=== PATIENT | male | born 1960 | race Hispanic/Latino ===

== ENCOUNTER 2020-08-03 02:33 | Emergency (ER) | payer MEDICARE ==
[2020-08-03] MEDS ORDERED: CEFTRIAXONE SODIUM 1 GM ONE (03:04)
[2020-08-03] MEDS ORDERED: ACETAMINOPHEN EXTRA STRENGTH 500 MG TABLET ONE (03:04)
[2020-08-03 03:09] LABS: BASOPHILS % (AUTO) 0.2 % (0.0-5.0); EOSINOPHILS % (AUTO) 0.5 % (0.0-8.0); HEMATOCRIT 41.9 % (42-54); LYMPHOCYTES % (AUTO) 18.3 % (21.0-51.0); MEAN CORPUSCULAR HEMOGLOBIN 27.7 pg (27.0-33.0); MEAN CORPUSCULAR HGB CONC 34.8 g/dL (32.0-36.0); MEAN CORPUSCULAR VOLUME 79.5 fL (79-99); NEUTROPHILS % (AUTO) 69.3 % (40.0-77.0); PLATELET COUNT (AUTO) 257 K/uL (130-400); RED BLOOD CELL COUNT(AUTO) 5.27 MIL/uL (4.50-6.20); RED CELL DISTRIBUTION WIDTH 13.7 % (11.0-15.5); WHITE BLOOD COUNT (AUTO) 12.4 K/uL (4.8-10.8)
[2020-08-03 03:14] LABS: CREATININE 1.1 mg/dL (0.5-1.5); POTASSIUM 3.2 mmol/L (3.5-5.1)
[2020-08-03 03:19] LABS: BILIRUBIN,TOTAL 0.5 mg/dL (0.2-1.0); TOTAL PROTEIN, SERUM 7.3 g/dL (6.0-8.3)
[2020-08-03 04:50] LABS: APPEARANCE,URINE Clear (CLEAR); BILIRUBIN,URINE Negative (NEGATIVE); COLOR,URINE Yellow (YELLOW); GLUCOSE, URINE (UA) Negative (NEGATIVE); KETONES,URINE Negative (NEGATIVE); LEUKOCYTE ESTERASE ,URINE Moderate (NEGATIVE); NITRATE,URINE Negative (NEGATIVE); OCCULT BLOOD,URINE Large (NEGATIVE); PROTEIN,URINE Negative (NEGATIVE)
[2020-08-03 05:02] LABS: BACTERIA,URINE Rare /HPF (None Seen)
[2020-08-03 05:03] LABS: SQUAMOUS EPITHELIAL CELL,UR Rare /HPF (0-2)
== END 2020-08-03 05:33 | disposition home or self-care (01) ==
LOC: EDH 02:33
DX: N45.3 Epididymo-orchitis (principal); Z20.828 Contact with and (suspected) exposure to other viral communicable diseases
CPT/HCPCS: 36415; 71045; 76870; 80053; 81001; 83605; 85025; 86308; 87040 ×2; 87088; 87426; 87804 ×2; 96365; 99285; J0696; U0003

== ENCOUNTER 2020-10-16 00:43 | Emergency (ER) | payer MEDICARE ==
[2020-10-16 01:29] LABS: BASOPHILS % (AUTO) 0.2 % (0.0-5.0); EOSINOPHILS % (AUTO) 1.6 % (0.0-8.0); HEMATOCRIT 43.2 % (42-54); LYMPHOCYTES % (AUTO) 27.5 % (21.0-51.0); MEAN CORPUSCULAR HEMOGLOBIN 27.7 pg (27.0-33.0); MEAN CORPUSCULAR VOLUME 81.5 fL (79-99); MONOCYTES % (AUTO) 8.8 % (3.0-13.0); NEUTROPHILS % (AUTO) 61.6 % (40.0-77.0); PLATELET COUNT (AUTO) 241 K/uL (130-400); RED CELL DISTRIBUTION WIDTH 14.1 % (11.0-15.5)
[2020-10-16 01:41] LABS: APPEARANCE,URINE Cloudy (CLEAR); BILIRUBIN,URINE Negative (NEGATIVE); COLOR,URINE Yellow (YELLOW); GLUCOSE, URINE (UA) Negative (NEGATIVE); KETONES,URINE Negative (NEGATIVE); LEUKOCYTE ESTERASE ,URINE Large (NEGATIVE); NITRATE,URINE Negative (NEGATIVE); OCCULT BLOOD,URINE Moderate (NEGATIVE); PH,URINE 5.5 (5.0-8.0); PROTEIN,URINE POS 1+ mg/dL (NEGATIVE); UROBILINOGEN,URINE 0.2 mg/dL (0.2-1.0)
[2020-10-16 01:44] LABS: ALBUMIN 3.5 g/dL (3.5-5.0); BILIRUBIN,TOTAL 0.4 mg/dL (0.2-1.0); POTASSIUM 3.9 mmol/L (3.5-5.1); TOTAL PROTEIN, SERUM 7.5 g/dL (6.0-8.3)
[2020-10-16 02:14] LABS: BACTERIA,URINE Moderate /HPF (None Seen); RBC,URINE 26-50 /HPF (0-1); SQUAMOUS EPITHELIAL CELL,UR Few /HPF (0-2); WBC,URINE 51-100 /HPF (0-1)
== END 2020-10-16 04:18 | disposition home or self-care (01) ==
LOC: EDH 00:43
DX: R10.10 Upper abdominal pain, unspecified (principal); M79.18 Myalgia, other site
CPT/HCPCS: 36415; 74176; 80053; 81001; 82150; 83690; 85025; 87077; 87088; 87186; 96374

== ENCOUNTER → 2022-02-18 | Outpatient (CLI) | payer MEDICARE | END | disposition home or self-care (01) | LOC: RAH 10:55 | DX: R06.02 Shortness of breath (principal) | CPT/HCPCS: 71046 ==

== ENCOUNTER → 2022-07-07 | Outpatient (CLI) | payer MEDICARE | END | disposition home or self-care (01) | LOC: RAH 09:10 | PROVIDERS: ATTEND Internal Medicine | DX: R06.02 Shortness of breath (principal) | CPT/HCPCS: 93015; 93017 ==

== ENCOUNTER 2023-01-01 07:14 | Emergency (ER) | payer MEDICARE ==
[~2023-01-01] VITALS: Ht 170.2 cm; Wt 86.2 kg
[2023-01-01] MEDS ORDERED: FAMC500T8 PO (07:40)
[2023-01-01] MEDS ORDERED: CEFTRIAXONE 500MG VIAL IM ONE (08:00)
[2023-01-01 08:02] VITALS: BP 132/74
[2023-01-01 08:19] LABS: APPEARANCE,URINE CLOUDY (CLEAR); BILIRUBIN,URINE NEGATIVE (NEGATIVE); COLOR,URINE YELLOW (YELLOW); GLUCOSE, URINE (UA) NEGATIVE (NEGATIVE); KETONES,URINE NEGATIVE (NEGATIVE); LEUKOCYTE ESTERASE ,URINE 500 Leu/uL (NEGATIVE); NITRATE,URINE 2+ (NEGATIVE); OCCULT BLOOD,URINE NEGATIVE (NEGATIVE); PROTEIN,URINE NEGATIVE (NEGATIVE); UROBILINOGEN,URINE 0.2 mg/dL (0.2-1.0)
[2023-01-01 08:41] LABS: BACTERIA,URINE MANY /HPF (None Seen); MUCUS,URINE RARE LPF (None Seen); WBC,URINE 51-100 /HPF (0-1)
== END 2023-01-01 08:04 | disposition home or self-care (01) ==
LOC: EDH 07:14
DX: A60.02 Herpesviral infection of other male genital organs (principal)
CPT/HCPCS: 99283; 87077; 87088; 87186; 87797; 87486; 81001; 96372; J0696

== ENCOUNTER 2023-06-20 15:43 | Emergency (ER) | payer MEDICARE ==
[~2023-06-20] VITALS: Ht 170.2 cm; Wt 81.6 kg
[~2023-06-20 15:43] MED LIST: FAMC500T8 PO
[2023-06-20] MEDS ORDERED: 0.9%NACL 1000ML 1,000 ML IV ONE (16:30)
[2023-06-20 16:42] LABS: BASOPHILS # (AUTO) 0.04 K/uL (0.00-0.20); BASOPHILS % (AUTO) 0.6 % (0.0-5.0); EOSINOPHILS # (AUTO) 0.17 K/uL (0.00-0.70); EOSINOPHILS % (AUTO) 2.4 % (0.0-8.0); HEMATOCRIT 47.2 % (42-54); IMMATURE GRANULOCYTE ABSOLUTE 0.01 K/uL (0-1); LYMPHOCYTES # (AUTO) 3.2 K/uL (1.0-4.8); LYMPHOCYTES % (AUTO) 46.1 % (21.0-51.0); MEAN CORPUSCULAR HEMOGLOBIN 28.2 pg (27.0-33.0); MEAN CORPUSCULAR HGB CONC 34.5 g/dL (32.0-36.0); MEAN CORPUSCULAR VOLUME 81.8 fL (79-99); MONOCYTES # (AUTO) 0.5 K/uL (0.1-1.0); MONOCYTES % (AUTO) 7.4 % (3.0-13.0); NEUTROPHILS # (AUTO) 3.1 K/uL (1.8-7.7); NEUTROPHILS % (AUTO) 43.4 % (40.0-77.0); PLATELET COUNT (AUTO) 250 K/uL (130-400); RED BLOOD CELL COUNT(AUTO) 5.77 MIL/uL (4.50-6.20); RED CELL DISTRIBUTION WIDTH 14.3 % (11.0-15.5)
[2023-06-20 16:50] LABS: POTASSIUM 3.8 mmol/L (3.5-5.1)
[2023-06-20 16:55] LABS: ALBUMIN 3.8 g/dL (3.5-5.0); BILIRUBIN,TOTAL 0.4 mg/dL (0.2-1.0); TOTAL PROTEIN, SERUM 7.5 g/dL (6.0-8.3)
[2023-06-20 18:54] VITALS: BP 128/74; PULSE 82; RESP 20; O2SAT 99
== END 2023-06-20 18:56 | disposition home or self-care (01) ==
LOC: EDH 15:43
DX: R07.89 Other chest pain (principal); M94.8X2 Other specified disorders of cartilage, upper arm; Z98.890 Other specified postprocedural states
CPT/HCPCS: 36415; 71045; 80053; 82550; 83880; 84484; 85025; 93005

== ENCOUNTER 2023-06-27 08:27 | Emergency (ER) | payer MEDICARE ==
[~2023-06-27] VITALS: Ht 170.2 cm; Wt 83.0 kg
[2023-06-27] MEDS ORDERED: IBUPROFEN 100 MG/5 ML SUSP UDCUP PO ONE (09:00)
[2023-06-27 09:12] LABS: BASOPHILS # (AUTO) 0.03 K/uL (0.00-0.20); BASOPHILS % (AUTO) 0.4 % (0.0-5.0); EOSINOPHILS # (AUTO) 0.13 K/uL (0.00-0.70); EOSINOPHILS % (AUTO) 1.9 % (0.0-8.0); HEMATOCRIT 49.3 % (42-54); IMMATURE GRANULOCYTE ABSOLUTE 0.01 K/uL (0-1); LYMPHOCYTES # (AUTO) 3.3 K/uL (1.0-4.8); MEAN CORPUSCULAR HEMOGLOBIN 27.5 pg (27.0-33.0); MEAN CORPUSCULAR HGB CONC 33.5 g/dL (32.0-36.0); MONOCYTES # (AUTO) 0.5 K/uL (0.1-1.0); MONOCYTES % (AUTO) 6.8 % (3.0-13.0); NEUTROPHILS # (AUTO) 2.9 K/uL (1.8-7.7); NEUTROPHILS % (AUTO) 42.8 % (40.0-77.0); PLATELET COUNT (AUTO) 247 K/uL (130-400); RED BLOOD CELL COUNT(AUTO) 6.01 MIL/uL (4.50-6.20); RED CELL DISTRIBUTION WIDTH 14.2 % (11.0-15.5); WHITE BLOOD COUNT (AUTO) 6.8 K/uL (4.8-10.8)
[2023-06-27 09:35] LABS: ALBUMIN 3.9 g/dL (3.5-5.0); BILIRUBIN,TOTAL 0.5 mg/dL (0.2-1.0); CREATININE 0.9 mg/dL (0.5-1.5); POTASSIUM 3.8 mmol/L (3.5-5.1); TOTAL PROTEIN, SERUM 7.4 g/dL (6.0-8.3)
[2023-06-27 10:16] LABS: APPEARANCE,URINE CLEAR (CLEAR); BILIRUBIN,URINE NEGATIVE (NEGATIVE); COLOR,URINE LIGHT-YELLOW (YELLOW); GLUCOSE, URINE (UA) NEGATIVE (NEGATIVE); KETONES,URINE NEGATIVE (NEGATIVE); LEUKOCYTE ESTERASE ,URINE NEGATIVE Leu/uL (NEGATIVE); NITRATE,URINE NEGATIVE (NEGATIVE); OCCULT BLOOD,URINE NEGATIVE (NEGATIVE); PROTEIN,URINE NEGATIVE (NEGATIVE); UROBILINOGEN,URINE 0.2 mg/dL (0.2-1.0)
[2023-06-27 10:42] LABS: ADD UA MICROSCOPIC NO
[2023-06-27 11:13] VITALS: BP 133/95; PULSE 72; RESP 17; O2SAT 99
== END 2023-06-27 11:32 | disposition home or self-care (01) ==
LOC: EDH 08:27
DX: G44.209 Tension-type headache, unspecified, not intractable (principal); H33.22 Serous retinal detachment, left eye
CPT/HCPCS: 36415; 70450; 71045; 80053; 81003; 85025; 93005

== ENCOUNTER 2023-11-17 03:40 | Emergency (ER) | payer MEDICARE ==
[~2023-11-17] VITALS: Ht 170.2 cm; Wt 2.5 kg
[2023-11-17 04:45] LABS: BASOPHILS # (AUTO) 0.03 K/uL (0.00-0.20); BASOPHILS % (AUTO) 0.5 % (0.0-5.0); EOSINOPHILS # (AUTO) 0.21 K/uL (0.00-0.70); EOSINOPHILS % (AUTO) 3.3 % (0.0-8.0); HEMATOCRIT 47.5 % (42-54); IMMATURE GRANULOCYTE ABSOLUTE 0.02 K/uL (0-1); LYMPHOCYTES # (AUTO) 2.7 K/uL (1.0-4.8); LYMPHOCYTES % (AUTO) 43.4 % (21.0-51.0); MEAN CORPUSCULAR HGB CONC 33.9 g/dL (32.0-36.0); MEAN CORPUSCULAR VOLUME 82.8 fL (79-99); MONOCYTES # (AUTO) 0.6 K/uL (0.1-1.0); MONOCYTES % (AUTO) 8.9 % (3.0-13.0); NEUTROPHILS # (AUTO) 2.8 K/uL (1.8-7.7); NEUTROPHILS % (AUTO) 43.6 % (40.0-77.0); PLATELET COUNT (AUTO) 235 K/uL (130-400); RED BLOOD CELL COUNT(AUTO) 5.74 MIL/uL (4.50-6.20); RED CELL DISTRIBUTION WIDTH 14.9 % (11.0-15.5); WHITE BLOOD COUNT (AUTO) 6.3 K/uL (4.8-10.8)
[2023-11-17 05:03] LABS: CREATININE 0.8 mg/dL (0.5-1.3); POTASSIUM 3.7 mmol/L (3.5-5.1)
[2023-11-17 05:08] LABS: ALBUMIN 3.6 g/dL (3.5-5.0); BILIRUBIN,TOTAL 0.3 mg/dL (0.2-1.0); TOTAL PROTEIN, SERUM 7.1 g/dL (6.0-8.3)
[2023-11-17] MEDS: KETOROLAC 15MG/ML VIAL (15MG/ML) IV ONE (06:41)
[2023-11-17 06:54] VITALS: BP 128/76; PULSE 74; RESP 18; O2SAT 98
== END 2023-11-17 06:59 | disposition home or self-care (01) ==
LOC: EDH 03:40
DX: R51.9 Headache, unspecified (principal); H54.62 Unqualified visual loss, left eye, normal vision right eye; Z79.624 Long term (current) use of inhibitors of nucleotide synthesis
CPT/HCPCS: 99285; 96374; 70450; 80053; 85025; 36415; J1885

== ENCOUNTER 2025-07-01 11:49 | Inpatient (IN) | payer MEDICARE, OTHER ==
[~2025-07-01] VITALS: Ht 170.2 cm; Wt 79.1 kg
--- NOTE | 2025-07-01 12:16 | ERN ---
ED Note History of Present Illness Stated Complaint: WEAKNESS Chief Complaint: Weakness Time Seen by MD: 11:54 Time Seen by Midlevel: 11:58 Dictation: 64-year-old male with no significant past medical history coming in complaining of generalized body weakness for one week and cough that started on Tuesday. Patient states on Tuesday he was seen at an urgent care where they nathan blood and did some swabs from the told him everything was normal. Patient denies having any recent diarrhea, fever, vomiting. Denies any chest pain or chest discomfort. 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; retinal detachment Surgical History: None Surgical History Other: LT RETINA DETACHMENT surgery Social History: Negative Review of System Dictation Constitutional: Generalized body weakness Eyes: Negative for injury, pain,redness, and discharge ENT: Negative for injury,pain or swelling Cardiovascular: Negative for chest pain, palpitations, and edema Respiratory: Negative for shortness of breath, cough, and wheezing, Abdomen/GI: Negative for abdominal pain, nausea, vomiting, diarrhea, and constipation Back: Negative for injury and pain : Negative for injury, bleeding and discharge MS/Extremity: Negative for injury and deformity Skin: Negative for rash, and discoloration Neuro: Negative for headache, weakness, numbness, tingling, and seizure Psych: Negative for suicide ideation, homicidal ideation, and hallucinations Review of Systems: was completed Initial Vital Sign VS Vital Signs Date Time Temp Pulse Resp B/P (MAP) Pulse Ox O2 Delivery O2 Flow Rate FiO2 07/01/25 11:50 101.1 110 24 110/71 95 Room Air 07/01/25 12:45 0 21 Physical Exam Dictation General: awake, alert, NAD Head/Face: Normocephalic, atraumatic Eyes: PERRL, EOMI, vision at baseline ENT: oral cavity clear, TMs clear, no signs of infection Neck: Trachea midline, supple, no nuchal rigidity Cardiovascular: Tachycardia, normal S1/S2, No MRGs, no JVD Respiratory: CTAB, no respiratory distress, No rales or wheezes Abdomen: Soft, non-tender, non-distended, normal bowel sounds, no guarding or rebound. Skin: Warm, dry, normal turgor, no rash MS/Extremity: Pulses equal, no cyanosis, neurovascular intact, FROM Neuro: COAx4, GCS 15, strength 5/5, CN 2-12 intact, normal cerebellar exam, normal gait, Psych: Normal behavior, mood, and affect normal Results (Laboratory/Radiology) Laboratory/Radiology Laboratory Tests Test 07/01/25 12:18 07/01/25 12:35 07/01/25 12:55 07/01/25 13:05 White Blood Count 7.0 K/uL (4.8-10.8) Red Blood Count 5.82 MIL/uL (4.50-6.20) Hemoglobin 15.9 g/dL (14.0-18.0) Hematocrit 44.5 % (42-54) Mean Corpuscular Volume 76.5 fL (79-99) L Mean Corpuscular Hemoglobin 27.3 pg (27.0-33.0) Mean Corpuscular Hemoglobin Concent 35.7 g/dL (32.0-36.0) Red Cell Distribution Width 14.2 % (11.0-15.5) Platelet Count 158 K/uL (130-400) Mean Platelet Volume 11.0 fL (7.5-10.5) H Immature Granulocyte % (Auto) 0.6 % (0-1) Neutrophils (%) (Auto) 83.8 % (40.0-77.0) H Lymphocytes (%) (Auto) 11.2 % (21.0-51.0) L Monocytes (%) (Auto) 4.0 % (3.0-13.0) Eosinophils (%) (Auto) 0.0 % (0.0-8.0) Basophils (%) (Auto) 0.4 % (0.0-5.0) Neutrophils # (Auto) 5.8 K/uL (1.8-7.7) Lymphocytes # (Auto) 0.8 K/uL (1.0-4.8) L Monocytes # (Auto) 0.3 K/uL (0.1-1.0) Eosinophils # (Auto) 0.00 K/uL (0.00-0.70) Basophils # (Auto) 0.03 K/uL (0.00-0.20) Absolute Immature Granulocyte (auto 0.04 K/uL (0-1) Nucleated Red Blood Cells 0.0 % (0.0-0.19) Sodium Level 127 mmol/L (136-145) L Potassium Level 3.5 mmol/L (3.5-5.1) Chloride Level 91 mmol/L (101-111) L Carbon Dioxide Level 25 mmol/L (21-32) Blood Urea Nitrogen 16 mg/dL (7-18) Creatinine 1.1 mg/dL (0.5-1.3) Glomerular Filtration Rate Calc 75 mL/min (>90) Random Glucose 119 mg/dL (70-105) H Lactic Acid Level 1.7 mmol/L (0.8-2.5) Total Calcium 8.2 mg/dL (8.5-10.1) L Total Bilirubin 0.8 mg/dL (0.2-1.0) Direct Bilirubin 0.3 mg/dL (0.0-0.3) Aspartate Amino Transf (AST/SGOT) 155 U/L (10-37) H Alanine Aminotransferase (ALT/SGPT) 189 U/L (12-78) H Alkaline Phosphatase 72 U/L (50-136) Total Creatine Kinase 251 U/L (21-232) #H Troponin I High Sensitivity 6 ng/L (4-75) Total Protein 7.0 g/dL (6.0-8.3) Albumin 2.9 g/dL (3.5-5.0) L Lipase 43 U/L (16-77) Influenza Type A Antigen Negative For Type A Influenza Type B Antigen Negative For Type B SARS-CoV-2, RNA, NAAT NEGATIVE SARS CoV-2 Urine Color YELLOW (YELLOW) Urine Appearance CLEAR (CLEAR) Urine pH 6.0 (5.0-8.0) Urine Specific [place] 1.021 (1.001-1.031) Urine Protein 30 mg/dL (NEGATIVE) H Urine Glucose (UA) NEGATIVE mg/dL (NEGATIVE) Urine Ketones NEGATIVE mg/dL (NEGATIVE) Urine Occult Blood +- (TRACE) (NEGATIVE) H Urine Nitrate NEGATIVE (NEGATIVE) Urine Bilirubin NEGATIVE mg/dL (NEGATIVE) Urine Urobilinogen 3 mg/dL (0.2-1.0) H Urine Leukocyte Esterase NEGATIVE Yesenia/uL Urine RBC 0-1 /HPF (0-1) Urine WBC 2-5 /HPF (0-1) H Urine Squamous Epithelial Cells RARE /HPF (0-2) Urine Bacteria None /HPF (None Seen) Urine Opiates Screen NEGATIVE (NEGATIVE) Urine Barbiturates Screen NEGATIVE (NEGATIVE) Urine Phencyclidine Screen NEGATIVE (NEGATIVE) Urine Amphetamines Screen NEGATIVE (NEGATIVE) Urine Benzodiazepines Screen NEGATIVE (NEGATIVE) Urine Cocaine Screen NEGATIVE (NEGATIVE) Urine Marijuana (THC) Screen NEGATIVE (NEGATIVE) Group A Streptococcus Rapid negative (NEGATIVE) Labs Reviewed?: Yes X-RAY Comment: [facility] [address] [place] [address] IMAGING REPORT Signed PATIENT: MARY VIRK MR#: [id number] : 03/16/1946 SEX: F AGE: 79 LOCATION: [facility] ORDER 115 STATUS: REG REPORT#: [id number] SERVICE 115 REASON: sob ORDERING PHYSICIAN: SHERICE EVANS CNP PROCEDURE: CXR1VW - CHEST 1VW EXAM: CR Chest, 1 View. CLINICAL HISTORY: sob COMPARISON: None provided. FINDINGS: LUNGS: The lungs show no infiltrate or other acute finding. PLEURAL SPACES: No evidence of pleural effusion or pneumothorax. MEDIASTINUM: Cardiac size and mediastinal contours within normal limits. Pacemaker leads are in satisfactory positions. BONES: No acute osseous abnormality. IMPRESSION: No acute cardiopulmonary pathology is evident. /[place] DICTATED BY: JOSE NARAYANAN Jr., MD DATE: 07/01/251428 ELECTRONICALLY SIGNED BY: JOSE NARAYANAN Jr., MD DATE: 07/01/251428 Ultrasound Comment: [facility] [address] [place] [address] IMAGING REPORT Signed PATIENT: ANTONIO KING MR#: [id number] : 1960 SEX: M AGE: 64 LOCATION: [facility] ORDER 152 STATUS: REG ER REPORT#: [id number] SERVICE 1520 REASON: abnormal liver enzymes ORDERING PHYSICIAN: SHERICE EVANS CNP PROCEDURE: ABDRUQLTD - US ABDOMINAL RUQ\LTD EXAM: US Abdomen, Right Upper Quadrant. CLINICAL HISTORY: Abnormal liver enzymes. TECHNIQUE: Right upper quadrant sonography performed with image documentation. COMPARISON: None provided. FINDINGS: LIVER: Echogenic liver measuring 15 cm. Limited evaluation of the left lobe due to bowel gas. No focal mass. GALLBLADDER: Gallbladder contracted. Gallbladder wall measures 4 mm. No gallstones. COMMON BILE DUCT: CBD measures 5 mm. PANCREAS: Visualized portion within normal limits. Pancreatic tail obscured by bowel gas. RIGHT KIDNEY: Right kidney measures 10.8 ??? 5.7 ??? 4.4 cm. Normal renal contours. No renal mass, calculus, or hydronephrosis. IMPRESSION: 1. Hepatic steatosis. /[place] DICTATED BY: JOSE NARAYANAN Jr., MD DATE: 07/01/251715 ELECTRONICALLY SIGNED BY: JOSE NARAYANAN Jr., MD DATE: 07/01/251715 ED Course ED Course Orders Procedure Category Date Status Time Cbc With Differential LAB 07/01/25 Complete 12:01 Blood Cult VIVIAN 07/01/25 In Process 12:01 Urinalysis Profile LAB 07/01/25 Complete 12:01 Culture Urine VIVIAN 07/01/25 In Process 12:01 0.9%Nacl 1000ml (Ns PHA 07/01/25 Complete 1000ml) 12:30 Creatine Kinase, Total LAB 07/01/25 Complete 12:01 Troponin I High LAB 07/01/25 Complete Sensitivity 12:01 Lactic Acid LAB 07/01/25 Complete 12:01 Basic Metabolic Panel LAB 07/01/25 Complete 12:01 Covid Rna Naat LAB 07/01/25 Complete 12:01 Influenza Type A & B, LAB 07/01/25 Complete Rapid 12:01 Chest 1vw RAD 07/01/25 Resulted 12:01 Drug Screen Urine LAB 07/01/25 Complete 12:01 12 Lead Ekg Tracing- EKG 07/01/25 Resulted Technical 12:19 Acetaminophen 500mg PHA 07/01/25 Complete Tab (Tylenol 500mg T 13:00 Rapid (Group A Strep) LAB 07/01/25 Complete 12:54 Hepatic Function Panel LAB 07/01/25 Complete 14:35 Lipase LAB 07/01/25 Complete 14:35 Us Abdominal Ruq\Ltd US 07/01/25 Resulted 15:20 Current Medications Medications (Trade) Dose Ordered Sig/Drew Route PRN Reason Start Time Stop Time Status Last Admin Dose Admin Acetaminophen (TYLenol 500MG TAB) 1,000 mg ONCE ONCE PO 07/01/25 13:00 07/01/25 13:01 DC 07/01/25 12:55 Sodium Chloride 2,286 ml @ 762 mls/hr ONCE ONCE IV 07/01/25 12:30 07/01/25 15:29 DC 07/01/25 12:51 Vital Signs Date Time Temp Pulse Resp B/P (MAP) Pulse Ox O2 Delivery O2 Flow Rate FiO2 07/01/25 15:51 100.2 77 17 99/55 96 Room Air* 0 21 07/01/25 14:21 100.2 87 18 111/77 94 Room Air* 0 21 07/01/25 12:55 103.1 07/01/25 12:45 103.1 101 18 122/81 96 Room Air* 0 21 07/01/25 11:50 101.1 110 24 110/71 95 Room Air Medical Decision Making MDM MDM: 64-year-old male with no significant past medical history coming in complaining of generalized body weakness for one week and cough that started on Tuesday. Patient states on Tuesday he was seen at an urgent care where they nathan blood and did some swabs from the told him everything was normal. Patient denies having any recent diarrhea, fever, vomiting. Denies any chest pain or chest discomfort.CBC shows no leukocytosis, anemia, no thrombocytopenia. Chemistry shows hyponatremia, hypochloremia, normal kidney function. Transaminitis, elevated CK at 251. UA shows no evidence of urinary tract infection. Outsole Handler negative. And serologies negative for COVID and flu. Ultrasound of the right upper quadrant shows hepatic steatosis. Patient is a upon reassessment patient states he feels the same after the fluids, states he feels very weak, generally, states intermittent cramping to bilateral legs. Patient will be admitted for sirs, and hyponatremia, dehydration Differential diagnosis: CHF exacerbation, pneumonia, fluid overload Rationale: Tests considered and ordered secondary to shared decision making include: labs, ECG and radiology Previous outside records reviewed: Old ER visits. Risk of complication and/or morbidity or mortality of patient management: None Medications-Per medication reconciliation Need for hospitalization: Patient does meet criteria for hospitalization. Need for emergency major/minor surgery: No There are no social concerns with this patient. Prescription drug management Prescriptions will include symptomatic care Patient's prior external medical records from other ER visits were reviewed by me as indicated. Prior testing and results from previous visits were reviewed. Prior tests were taken into account with medical decision making and resource utilization, independent historian/historians were used to obtain complete medical history. I independently interpreted the test that were performed, results were reviewed by me and considered findings on radiology if ordered. Medical management and examination interpretation discussions were had by me with other qualified healthcare professionals as indicated for the patient's care. DX & DISP Disposition: Inpatient Decision to Admit Date: Jul 01, 2025 Decision to Admit Time: 17:08 Departure Impression: Primary Impression: SIRS (systemic inflammatory response syndrome) Additional Impressions: Dehydration, Elevated CK Condition: Stable Referrals: LINUS OH MD (PCP) Time of Disposition: 17:08 I have reviewed the case, and I agree with, Diagnosis and Plan SHERICE EVANS CNP Jul 01, 2025 12:15
[2025-07-01 12:24] LABS: IMMATURE GRANULOCYTE ABSOLUTE 0.04 K/uL (0-1); NUCLEATED RED BLOOD CELLS 0.0 % (0.0-0.19); PLATELET COUNT (AUTO) 158 K/uL (130-400); RED BLOOD CELL COUNT(AUTO) 5.82 MIL/uL (4.50-6.20); RED CELL DISTRIBUTION WIDTH 14.2 % (11.0-15.5); WHITE BLOOD COUNT (AUTO) 7.0 K/uL (4.8-10.8)
--- NOTE | 2025-07-01 12:50 | EKG ---
[facility] Test Date: 2025-07-01 Test Time: 12:04:55 Pat Name: ANTONIO KING Department: [facility] Room: Gender: M Glue Spreader: [id number] : 1960 Requested By: SHERICE EVANS Order Number: [id number] Reading MD: Mary Medina Measurements Intervals [place] Rate: 114 P: 38 MA: 178 QRS: 231 QRSD: 104 T: 3 QT: 314 QTc: 434 Interpretive Statements Sinus tachycardia Markedly posterior QRS axis Consider anterior infarct Borderline ST elevation, lateral leads Compared to ECG 06/27/2023 08:38:27 Posterior QRS axis now present Myocardial infarct finding now present ST (T wave) deviation now present Sinus rhythm no longer present Left-axis deviation no longer present Electronically Signed On 07-01-2025 13:49:23 INSPECTOR [employer] by Mary Medina Please click the below link to view image of tracing.
[2025-07-01] MEDS: 0.9%NACL 1000ML 2,286 ML IV ONE (12:51)
[2025-07-01 12:59] LABS: CREATININE 1.1 mg/dL (0.5-1.3); GLOMERULAR FILTR. RATE CALC 75.0 mL/min (>90); GLUCOSE,RANDOM 119.0 mg/dL (70-105); SODIUM SERUM 127.0 mmol/L (136-145); UREA NITROGEN, BLOOD 16.0 mg/dL (7-18)
[2025-07-01 13:04] LABS: CREATINE KINASE, TOTAL 251.0 U/L (21-232)
[2025-07-01 13:05] LABS: SARS-CoV-2, RNA, NAAT NEGATIVE SARS CoV-2 (NEGATIVE)
[2025-07-01 13:12] LABS: INFLUENZA TYPE A Negative For Type A (NEGATIVE); INFLUENZA TYPE B Negative For Type B (NEGATIVE)
[2025-07-01 13:13] LABS: APPEARANCE,URINE CLEAR (CLEAR); GLUCOSE, URINE (UA) NEGATIVE (NEGATIVE); LEUKOCYTE ESTERASE ,URINE NEGATIVE Leu/uL (NEGATIVE); NITRATE,URINE NEGATIVE (NEGATIVE); OCCULT BLOOD,URINE +- (TRACE) (NEGATIVE)
[2025-07-01 13:20] LABS: AMPHET/METH SCREEN,URINE NEGATIVE (NEGATIVE); BARBITURATE SCREEN, URINE NEGATIVE (NEGATIVE); CANNABINOID SCREEN,URINE NEGATIVE (NEGATIVE); COCAINE SCREEN,URINE NEGATIVE (NEGATIVE)
[2025-07-01 13:25] LABS: ADD UA MICROSCOPIC YES
[2025-07-01 13:28] LABS: SQUAMOUS EPITHELIAL CELL,UR RARE /HPF (0-2)
--- NOTE | 2025-07-01 13:31 | HMCIMG ---
EXAM: CR Chest, 1 View. CLINICAL HISTORY: cough COMPARISON: None provided. FINDINGS: LUNGS: There is no mass, infiltrate, or acute pulmonary abnormality. PLEURAL SPACES: No pleural effusion or pneumothorax. MEDIASTINUM: The cardiomediastinal silhouette is within normal limits. BONES: No aggressive appearing osseous lesion seen. IMPRESSION: No acute cardiopulmonary pathology is evident. /[place]
[2025-07-01 15:18] LABS: ASPARTATE AMINOTRANSFERASE 155.0 U/L (10-37); TOTAL PROTEIN, SERUM 7.0 g/dL (6.0-8.3)
--- NOTE | 2025-07-01 16:16 | HMCIMG ---
EXAM: US Abdomen, Right Upper Quadrant. CLINICAL HISTORY: Abnormal liver enzymes. TECHNIQUE: Right upper quadrant sonography performed with image documentation. COMPARISON: None provided. FINDINGS: LIVER: Echogenic liver measuring 15 cm. Limited evaluation of the left lobe due to bowel gas. No focal mass. GALLBLADDER: Gallbladder contracted. Gallbladder wall measures 4 mm. No gallstones. COMMON BILE DUCT: CBD measures 5 mm. PANCREAS: Visualized portion within normal limits. Pancreatic tail obscured by bowel gas. RIGHT KIDNEY: Right kidney measures 10.8 ??? 5.7 ??? 4.4 cm. Normal renal contours. No renal mass, calculus, or hydronephrosis. IMPRESSION: 1. Hepatic steatosis. /[place]
--- NOTE | 2025-07-01 17:18 | HP ---
[facility] HISTORY AND PHYSICAL Date of Service: Jul 01, 2025 Time of Service: 17:06 HISTORY OF PRESENT ILLNESS: [ ] This is a 64-year-old female that presents in ED with chief complaints of feeling weakness. Onset for one-week patient had a cough started on Tuesday. Apparently patient went to urgent care had blood drawn and had multiple workup of influenza a and B and was told that everything was normal. She denies fever chills chest pain or shortness for breath. ER workup patient with no leukocytosis. However is sodium is 127 glucose 119 LFTs elevated 155 AST ALT 189 CK 251 albumin 2.9. Patient reports she continues to feel weak she received 2 L of IV fluids in ED. Serology was obtained influenza a and B were negative COVID-19 negative group a strep negative. Patient was seen in ED Patient appears to be very weak he said he was unable to walk patient reports no back pain, on recent falls. But he does report he has poor appetite and has not well for some days. Patient will receive IV fluids and we will repeat assess tomorrow morning. physical therapy be ordered to evaluate patient in a.m. REVIEW OF SYSTEMS Fourteen point ROS was obtained all relevant positive documented otherwise ROS negative PAST MEDICAL HISTORY: [ ] No Pertinent History PAST SURGICAL HISTORY: [ ] LT RETINA DETACHMENT surgery PAST SOCIAL HISTORY: [ Smoking tobacco products and alcohol use Coded Allergies: No Known Drug Allergies (Unverified Allergy, Unknown, 01/01/23) morphine (Unverified Allergy, Unknown, 07/01/25) PHYSICAL EXAM GENERAL APPEARANCE: The patient is awake, alert, and oriented, in no acute ca rdiopulmonary distress. NEUROLOGICAL: Cranial nerves II-XII grossly intact. Motor is 5/5 in bilateral upper and lower extremities proximal to distal. No sensory deficits. HEENT: Face is symmetric. Pupils are equal and reactive. Extraocular movements are intact. NECK: Supple. No JVD. No thyromegaly. No submental, submandibular, pre- /postauricular, occipital or supraclavicular lymphadenopathy. CHEST: Normal chest expansion. No Telemetry. LUNGS: Absence of any rales, rhonchi or any wheezing. CARDIOVASCULAR: Regular. S1 and S2 normal. No appreciable rubs, murmurs or gallops. ABDOMEN: Soft, nontender, and nondistended. There is no rebound, voluntary guarding, or rigidity. : Deferred. No Theodore. EXTREMITIES: Non-edematous and not cyanotic. No clubbing. Good capillary refill. SKIN: No skin breakdown. Vital Sign (Last 24 Hours) 07/01/25 15:51 Temp 100.2 Pulse 77 Resp 17 B/P (MAP) 99/55 Pulse Ox 96 O2 Delivery Room Air* O2 Flow Rate 0 FiO2 21 LABS: Laboratory: Test 07/01/25 13:05 07/01/25 12:55 07/01/25 12:35 07/01/25 12:18 Range/Units Group A Streptococcus Rapid negative NEGATIVE Urine Color YELLOW YELLOW Urine Appearance CLEAR CLEAR Urine pH 6.0 5.0-8.0 Urine Specific [place] 1.021 1.001-1.031 Urine Protein 30 H NEGATIVE mg/dL Urine Glucose (UA) NEGATIVE NEGATIVE mg/dL Urine Ketones NEGATIVE NEGATIVE mg/dL Urine Occult Blood +- (TRACE) H NEGATIVE Urine Nitrate NEGATIVE NEGATIVE Urine Bilirubin NEGATIVE NEGATIVE mg/dL Urine Urobilinogen 3 H 0.2-1.0 mg/dL Urine Leukocyte Esterase NEGATIVE NEGATIVE Yesenia/uL Urine RBC 0-1 0-1 /HPF Urine WBC 2-5 H 0-1 /HPF Urine Squamous Epithelial Cells RARE 0-2 /HPF Urine Bacteria None None Seen /HPF Urine Opiates Screen NEGATIVE NEGATIVE Urine Barbiturates Screen NEGATIVE NEGATIVE Urine Phencyclidine Screen NEGATIVE NEGATIVE Urine Amphetamines Screen NEGATIVE NEGATIVE Urine Benzodiazepines Screen NEGATIVE NEGATIVE Urine Cocaine Screen NEGATIVE NEGATIVE Urine Marijuana (THC) Screen NEGATIVE NEGATIVE Influenza Type A Antigen Negative For Type A NEGATIVE Influenza Type B Antigen Negative For Type B NEGATIVE SARS-CoV-2, RNA, NAAT NEGATIVE SARS CoV-2 NEGATIVE White Blood Count 7.0 4.8-10.8 K/uL Red Blood Count 5.82 4.50-6.20 MIL/uL Hemoglobin 15.9 14.0-18.0 g/dL Hematocrit 44.5 42-54 % Mean Corpuscular Volume 76.5 L 79-99 fL Mean Corpuscular Hemoglobin 27.3 27.0-33.0 pg Mean Corpuscular Hemoglobin Concent 35.7 32.0-36.0 g/dL Red Cell Distribution Width 14.2 11.0-15.5 % Platelet Count 158 130-400 K/uL Mean Platelet Volume 11.0 H 7.5-10.5 fL Immature Granulocyte % (Auto) 0.6 0-1 % Neutrophils (%) (Auto) 83.8 H 40.0-77.0 % Lymphocytes (%) (Auto) 11.2 L 21.0-51.0 % Monocytes (%) (Auto) 4.0 3.0-13.0 % Eosinophils (%) (Auto) 0.0 0.0-8.0 % Basophils (%) (Auto) 0.4 0.0-5.0 % Neutrophils # (Auto) 5.8 1.8-7.7 K/uL Lymphocytes # (Auto) 0.8 L 1.0-4.8 K/uL Monocytes # (Auto) 0.3 0.1-1.0 K/uL Eosinophils # (Auto) 0.00 0.00-0.70 K/uL Basophils # (Auto) 0.03 0.00-0.20 K/uL Absolute Immature Granulocyte (auto 0.04 0-1 K/uL Nucleated Red Blood Cells 0.0 0.0-0.19 % Sodium Level 127 L 136-145 mmol/L Potassium Level 3.5 3.5-5.1 mmol/L Chloride Level 91 L 101-111 mmol/L Carbon Dioxide Level 25 21-32 mmol/L Blood Urea Nitrogen 16 7-18 mg/dL Creatinine 1.1 0.5-1.3 mg/dL Glomerular Filtration Rate Calc 75 >90 mL/min Random Glucose 119 H 70-105 mg/dL Lactic Acid Level 1.7 0.8-2.5 mmol/L Total Calcium 8.2 L 8.5-10.1 mg/dL Total Bilirubin 0.8 0.2-1.0 mg/dL Direct Bilirubin 0.3 0.0-0.3 mg/dL Aspartate Amino Transf (AST/SGOT) 155 H 10-37 U/L Alanine Aminotransferase (ALT/SGPT) 189 H 12-78 U/L Alkaline Phosphatase 72 50-136 U/L Total Creatine Kinase 251 #H 21-232 U/L Troponin I High Sensitivity 6 4-75 ng/L Total Protein 7.0 6.0-8.3 g/dL Albumin 2.9 L 3.5-5.0 g/dL Lipase 43 16-77 U/L DIAGNOSTICS / RADIOLOGY: [ ] REASON: abnormal liver enzymes ORDERING PHYSICIAN: SHERICE EVANS CNP PROCEDURE: ABDRUQLTD - US ABDOMINAL RUQ\LTD EXAM: US Abdomen, Right Upper Quadrant. CLINICAL HISTORY: Abnormal liver enzymes. TECHNIQUE: Right upper quadrant sonography performed with image documentation. COMPARISON: None provided. FINDINGS: LIVER: Echogenic liver measuring 15 cm. Limited evaluation of the left lobe due to bowel gas. No focal mass. GALLBLADDER: Gallbladder contracted. Gallbladder wall measures 4 mm. No gallstones. COMMON BILE DUCT: CBD measures 5 mm. PANCREAS: Visualized portion within normal limits. Pancreatic tail obscured by bowel gas. RIGHT KIDNEY: Right kidney measures 10.8 ??? 5.7 ??? 4.4 cm. Normal renal contours. No renal mass, calculus, or hydronephrosis. IMPRESSION: 1. Hepatic steatosis. ASSESSMENT: SIRs with out organ dysfunction POA Failure to thrive POA Hyponatremia POA Elevated LFTs POA Hepatic steatosis. Evidence by ultrasound Debility with pysical deconditioning PLAN: [ ] Admit: Medical-surgical floor condition: Guarded Status: Full code IVF: NS at 75 mL/hour Consultants none Antibiotics: Zosyn 3375 g IV every 8 hours Microbiology blood cultures in process. Labs cbc, cmp, mag+ Replace electrolytes as needed as per protocol to keep potassium above 4.0 magnesium 2.0. Home medications pending to be reviewed by RN nurse. PRN: MEDICATIONS Tylenol 650 mg po every 4 hrs for fever Zofran 4 mg IV every 6 hrs for n/v Hydralazine 5 mg IV every 4 hrs systolic pressure > 160 bowel regiment: lactulose 20 gm PO BID PRN constipation PT services to eval and treat. Dietitian evaluate Supportive measures: DVT ppx, GI ppx all questions answered time spent: > 35 min Supervising MD: Dr. Wes Michael c/d This document was generated in part using voice recognition software, occasional wrong word or sound alike substitutions may have occurred due to the inherent limitations of voice recognition software. Read the chart carefully and recognize using context, where the substitutions have occurred. Although every effort was made to edit the content, attending urologist and typing errors may occur ADVANCED CARE PLANNING 1. Which of the following were discussed? Hospice Care - Yes / No Therapeutic options - Yes / No Advance Directives - Yes / No Other discussions - 2. Discussed with who? 3. Voluntary nature of this service was explained to the patient? Yes / No 4. Amount of time spent - 5. Reviewed by Physician? (if this service was performed by NPP) Yes / No ATTESTATION BY PHYSICIAN I have seen and examined the patient. I reviewed the documentation, medical decision making, and treatment plan as noted by the mid-level provider above. I agree with the findings and plan of care. Rogelio Harvey IV, MD, [facility] Jul 01, 2025 17:18
[2025-07-01] MEDS ORDERED: MAGNESIUM 2GM PREMIX 50ML 50 ML IV PRN (17:30)
[2025-07-01] MEDS ORDERED: 0.9%NACL 50ML IV SCH (17:30)
[2025-07-01] MEDS ORDERED: PoTASSium chl 10% ELIXIR 20MEQ 20 MEQ/15 ML UDCUP PO PRN (17:30)
[2025-07-01] MEDS ORDERED: LACTULOSE 20 GM/30 ML UDCUP PO PRN (17:30)
[2025-07-01] MEDS: ZOSYN 3.375GM +NS 50ML IVPB SCH (18:36)
[2025-07-01] MEDS: 0.9%NACL 1000ML 1,000 ML IV SCH (18:36)
[2025-07-02] VITALS (7 sets, daily range): BP systolic 101–116; BP diastolic 63–71; PULSE 65–101; RESP 17–20; TEMP 97.9–103.1; O2SAT 96–98
--- NOTE | 2025-07-02 00:17 | NUR ---
REPORT GIVEN TO KWAN ZHU
[2025-07-02] MEDS ORDERED: ASPI-1190 PO (01:10)
[2025-07-02 05:02] LABS: IMMATURE GRANULOCYTE ABSOLUTE 0.05 K/uL (0-1); NUCLEATED RED BLOOD CELLS 0.0 % (0.0-0.19); PLATELET COUNT (AUTO) 120 K/uL (130-400); RED BLOOD CELL COUNT(AUTO) 4.92 MIL/uL (4.50-6.20); RED CELL DISTRIBUTION WIDTH 14.5 % (11.0-15.5); WHITE BLOOD COUNT (AUTO) 6.7 K/uL (4.8-10.8)
[2025-07-02 05:20] LABS: ASPARTATE AMINOTRANSFERASE 110.0 U/L (10-37); CREATININE 1.0 mg/dL (0.5-1.3); GLOMERULAR FILTR. RATE CALC 85.0 mL/min (>90); GLUCOSE,RANDOM 105.0 mg/dL (70-105); SODIUM SERUM 132.0 mmol/L (136-145); TOTAL PROTEIN, SERUM 5.8 g/dL (6.0-8.3); UREA NITROGEN, BLOOD 13.0 mg/dL (7-18)
[2025-07-02] MEDS: PoTASSium chloRIDE 20MEQ ER 20 MEQ ERTAB PO PRN (08:40)
[2025-07-02] MEDS: FAMOTIDINE 20MG TAB PO SCH (08:41)
--- NOTE | 2025-07-02 10:33 | PN ---
[facility] PROGRESS NOTE Date of Service: Jul 02, 2025 Time of Service: 10:33 SUBJECTIVE: 07/02/2025: Patient was seen and evaluated bedside this morning. He is awake, alert, oriented x3, saturating 95% at room air. Patient is still complains of generalized weakness, says that he was not eating, drinking water for the past 2 weeks. Patient has normal strength in upper and lower extremities, patient is able to sit on his own from supine position, no nuchal rigidity. He denies chest pain, shortness of breath, palpitations. Morning lab showed sodium 132, potassium 3.6, white count 6.7, procalcitonin 3.34, lactic acid 1.8. Pending blood, urine cultures, CT abdomen. Physical therapy and evaluation was requested for mobilizing the patient. REVIEW OF SYSTEMS Fourteen point ROS was obtained all relevant positive documented otherwise ROS negative PHYSICAL EXAM GENERAL APPEARANCE: The patient is awake, alert, and oriented, in no acute cardiopulmonary distress. NEUROLOGICAL: Cranial nerves II-XII grossly intact. Motor is 5/5 in bilateral upper and lower extremities proximal to distal. No sensory deficits. HEENT: Face is symmetric. Pupils are equal and reactive. Extraocular movements are intact. NECK: Supple. No JVD. No thyromegaly. No submental, submandibular, pre- /postauricular, occipital or supraclavicular lymphadenopathy. CHEST: Normal chest expansion. No Telemetry. LUNGS: Absence of any rales, rhonchi or any wheezing. CARDIOVASCULAR: Regular. S1 and S2 normal. No appreciable rubs, murmurs or gallops. ABDOMEN: Soft, nontender, and nondistended. There is no rebound, voluntary guarding, or rigidity. : Deferred. No Theodore. EXTREMITIES: Non-edematous and not cyanotic. No clubbing. Good capillary refill. SKIN: No skin breakdown. Vital Signs (last 8hr) Date Time Temp Pulse Resp B/P (MAP) Pulse Ox O2 Delivery O2 Flow Rate FiO2 07/02/25 08:00 98.1 93 17 116/71 96 Room Air 07/02/25 04:13 98.2 76 18 106/67 95 Room Air LABS: Laboratory: Test 07/02/25 04:26 07/01/25 13:05 07/01/25 12:55 07/01/25 12:35 Range/Units White Blood Count 6.7 4.8-10.8 K/uL Red Blood Count 4.92 4.50-6.20 MIL/uL Hemoglobin 13.5 L 14.0-18.0 g/dL Hematocrit 38.5 L 42-54 % Mean Corpuscular Volume 78.3 L 79-99 fL Mean Corpuscular Hemoglobin 27.4 27.0-33.0 pg Mean Corpuscular Hemoglobin Concent 35.1 32.0-36.0 g/dL Red Cell Distribution Width 14.5 11.0-15.5 % Platelet Count 120 L 130-400 K/uL Mean Platelet Volume 11.1 H 7.5-10.5 fL Immature Granulocyte % (Auto) 0.7 0-1 % Neutrophils (%) (Auto) 86.5 H 40.0-77.0 % Lymphocytes (%) (Auto) 9.1 L 21.0-51.0 % Monocytes (%) (Auto) 3.4 3.0-13.0 % Eosinophils (%) (Auto) 0.0 0.0-8.0 % Basophils (%) (Auto) 0.3 0.0-5.0 % Neutrophils # (Auto) 5.8 1.8-7.7 K/uL Lymphocytes # (Auto) 0.6 L 1.0-4.8 K/uL Monocytes # (Auto) 0.2 0.1-1.0 K/uL Eosinophils # (Auto) 0.00 0.00-0.70 K/uL Basophils # (Auto) 0.02 0.00-0.20 K/uL Absolute Immature Granulocyte (auto 0.05 0-1 K/uL Nucleated Red Blood Cells 0.0 0.0-0.19 % White Cell Morphology Comment See comments Sodium Level 132 L 136-145 mmol/L Potassium Level 3.6 3.5-5.1 mmol/L Chloride Level 97 L 101-111 mmol/L Carbon Dioxide Level 27 21-32 mmol/L Blood Urea Nitrogen 13 7-18 mg/dL Creatinine 1.0 0.5-1.3 mg/dL Glomerular Filtration Rate Calc 85 >90 mL/min Random Glucose 105 70-105 mg/dL Total Calcium 7.8 L 8.5-10.1 mg/dL Magnesium Level 2.50 H 1.80-2.40 mg/dL Total Bilirubin 0.7 0.2-1.0 mg/dL Aspartate Amino Transf (AST/SGOT) 110 H 10-37 U/L Alanine Aminotransferase (ALT/SGPT) 147 #H 12-78 U/L Alkaline Phosphatase 60 50-136 U/L Total Protein 5.8 L 6.0-8.3 g/dL Albumin 2.4 L 3.5-5.0 g/dL Thyroid Stimulating Hormone (TSH) 1.95 0.36-3.74 uIU/mL Group A Streptococcus Rapid negative NEGATIVE Urine Color YELLOW YELLOW Urine Appearance CLEAR CLEAR Urine pH 6.0 5.0-8.0 Urine Specific [place] 1.021 1.001-1.031 Urine Protein 30 H NEGATIVE mg/dL Urine Glucose (UA) NEGATIVE NEGATIVE mg/dL Urine Ketones NEGATIVE NEGATIVE mg/dL Urine Occult Blood +- (TRACE) H NEGATIVE Urine Nitrate NEGATIVE NEGATIVE Urine Bilirubin NEGATIVE NEGATIVE mg/dL Urine Urobilinogen 3 H 0.2-1.0 mg/dL Urine Leukocyte Esterase NEGATIVE NEGATIVE Yesenia/uL Urine RBC 0-1 0-1 /HPF Urine WBC 2-5 H 0-1 /HPF Urine Squamous Epithelial Cells RARE 0-2 /HPF Urine Bacteria None None Seen /HPF Urine Opiates Screen NEGATIVE NEGATIVE Urine Barbiturates Screen NEGATIVE NEGATIVE Urine Phencyclidine Screen NEGATIVE NEGATIVE Urine Amphetamines Screen NEGATIVE NEGATIVE Urine Benzodiazepines Screen NEGATIVE NEGATIVE Urine Cocaine Screen NEGATIVE NEGATIVE Urine Marijuana (THC) Screen NEGATIVE NEGATIVE Influenza Type A Antigen Negative For Type A NEGATIVE Influenza Type B Antigen Negative For Type B NEGATIVE SARS-CoV-2, RNA, NAAT NEGATIVE SARS CoV-2 NEGATIVE Test 07/01/25 12:18 Range/Units Lactic Acid Level 1.7 0.8-2.5 mmol/L Direct Bilirubin 0.3 0.0-0.3 mg/dL Total Creatine Kinase 251 #H 21-232 U/L Troponin I High Sensitivity 6 4-75 ng/L Lipase 43 16-77 U/L Current Medications Medications (Trade) Dose Ordered Sig/Drew Route PRN Reason Start Time Stop Time Status Last Admin Dose Admin Acetaminophen (TYLenol 325MG TAB) 650 mg Q4H PRN PO TEMPERATURE GREATER THAN 101.5 07/01/25 17:30 07/31/25 17:29 07/02/25 08:41 650 MG Famotidine (Pepcid 20mg Tab) 20 mg DAILY PO 07/02/25 09:00 07/15/25 11:00 07/02/25 08:41 20 MG Hydralazine HCl (APRESOLine 20MG INJ) 5 mg Q6H PRN IV ADMINISTER FOR SBP > 160 07/01/25 17:30 07/31/25 17:29 Lactulose (Constulose 20gm/ 30ml Udcup) 20 gm BID PRN PO CONSTIPATION 07/01/25 17:30 07/31/25 17:29 Magnesium Sulfate 50 ml @ 0 mls/hr PROTOCOL PRN IV low mag level 07/01/25 17:30 07/31/25 17:29 Ondansetron HCl (zoFRAN 4MG INJ) 4 mg Q6H PRN IVP NAUSEA/VOMITING 07/01/25 17:30 07/31/25 17:29 Piperacillin Sod/ Tazobactam Sod (Zosyn 3.375gm+NS 50ml) 3.375 gm Q8H IVPB 07/01/25 17:30 07/11/25 17:29 07/02/25 08:42 3.375 GM Potassium Chloride 100 ml @ 50 mls/hr AD PRN IV POTASSIUM PROTOCOL 07/01/25 17:30 07/01/25 17:19 DC Potassium Chloride 100 ml @ 100 mls/hr AD PRN IV POTASSIUM PROTOCOL 07/01/25 17:30 07/31/25 17:29 Potassium Chloride (K-Dur/Klor-Con 20meq) 20 meq AD PRN PO POTASSIUM PROTOCOL 07/01/25 17:30 07/31/25 17:29 07/02/25 08:40 20 MEQ Potassium Chloride (KCl 10% Elixir 20meq/15ml) 20 meq AD PRN PO POTASSIUM PROTOCOL 07/01/25 17:30 07/31/25 17:29 Sodium Chloride 1,000 ml @ 75 mls/hr [id number] IV 07/01/25 17:30 07/31/25 17:29 07/02/25 06:40 75 MLS/HR Sodium Chloride (NS 50ml) 50 ml AD IV 07/01/25 17:30 07/02/25 07:26 DC DIAGNOSTICS / RADIOLOGY: [place] [address] [place] [address] IMAGING REPORT Signed PATIENT: ANTONIO KING MR#: [id number] : 1960 SEX: M AGE: 64 LOCATION: EDH ORDER 1203 STATUS: REG ER REPORT#: [id number] SERVICE 1201 REASON: cough ORDERING PHYSICIAN: SHERICE EVANS CNP PROCEDURE: CXR1VW - CHEST 1VW EXAM: CR Chest, 1 View. CLINICAL HISTORY: cough COMPARISON: None provided. FINDINGS: LUNGS: There is no mass, infiltrate, or acute pulmonary abnormality. PLEURAL SPACES: No pleural effusion or pneumothorax. MEDIASTINUM: The cardiomediastinal silhouette is within normal limits. BONES: No aggressive appearing osseous lesion seen. IMPRESSION: No acute cardiopulmonary pathology is evident. /[place] DICTATED BY: JOSE NARAYANAN Jr., MD DATE: 07/01/251430 ELECTRONICALLY SIGNED BY: JOSE NARAYANAN Jr., MD DATE: 07/01/251430 [address] [address] IMAGING REPORT Signed PATIENT: ANTONIO KING MR#: [id number] : 1960 SEX: M AGE: 64 LOCATION: ED ORDER 1521 STATUS: REG ER REPORT#: [id number] SERVICE 1520 REASON: abnormal liver enzymes ORDERING PHYSICIAN: SHERICE EVANS CNP PROCEDURE: ABDRUQLTD - US ABDOMINAL RUQ\LTD EXAM: US Abdomen, Right Upper Quadrant. CLINICAL HISTORY: Abnormal liver enzymes. TECHNIQUE: Right upper quadrant sonography performed with image documentation. COMPARISON: None provided. FINDINGS: LIVER: Echogenic liver measuring 15 cm. Limited evaluation of the left lobe due to bowel gas. No focal mass. GALLBLADDER: Gallbladder contracted. Gallbladder wall measures 4 mm. No gallstones. COMMON BILE DUCT: CBD measures 5 mm. PANCREAS: Visualized portion within normal limits. Pancreatic tail obscured by bowel gas. RIGHT KIDNEY: Right kidney measures 10.8 ??? 5.7 ??? 4.4 cm. Normal renal contours. No renal mass, calculus, or hydronephrosis. IMPRESSION: 1. Hepatic steatosis. /[place] DICTATED BY: JOSE NARAYANAN Jr., MD DATE: 07/01/251715 ELECTRONICALLY SIGNED BY: JOSE NARAYANAN Jr., MD DATE: 07/01/251715 ASSESSMENT: SIRs with out organ dysfunction POA Hyponatremia POA Elevated LFTs POA Hepatic steatosis. Evidence by ultrasound PLAN: SIRs with out organ dysfunction POA On presentation patient's temperature 101.3, heart rate 110, respiratory rate 24, lactic acid 1.7 Urine negative for UTI, positive for trace occult blood Patient was started on IV Zosyn q.8h day [address] abdomen pelvis Hyponatremia POA On presentation labs showed sodium 127 Patient was started on hormone saline 75 mL/hour Today morning lab showed sodium 132 Microbiology blood cultures in process. PRN: MEDICATIONS Tylenol 650 mg po every 4 hrs for fever zofran 4 mg IV every 6 hrs for n/v Hydralazine 5 mg IV every 4 hrs systolic pressure > 160 bowel regiment: lactulose 20 gm PO BID PRN constipation Supportive measures: DVT prophylaxis with SCDs GI prophylaxis with Pepcid 20 mg daily p.o. ATTESTATION BY PHYSICIAN I have seen and examined the patient. I reviewed the documentation, medical decision making, and treatment plan as noted by the resident physician above. I agree with the findings and plan of care. UNRULY HERNANDEZ MD, ADIL SHAH QUADRI MD Jul 02, 2025 10:33
--- NOTE | 2025-07-02 12:11 | NUR ---
DCP:HOME W/DAUGHTER Pt currently lives alone in his home. Pt denies having any DME, home health, or provider services. Prior to coming into the ER pt was able to complete ADLs independently. PCP is Dr George Jean Baptiste. At [place] pt will be going home with his daughter, daughter states that she would be interested in home health to go to her home to do PT.
[2025-07-02 14:31] LABS: HEPATITIS A IGM ANTIBODY Non-Reactive (Nonreactive); HEPATITIS B CORE IGM ANTIBODY Non-Reactive (Negative)
--- NOTE | 2025-07-02 15:45 | NUR ---
Order received and checked on patient. Patient noted with high fever (103.1). Sharon, nurse, informed.
--- NOTE | 2025-07-02 18:34 | EKG ---
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 : 1960 Requested By: JESSICA HOLT Order Number: [id number] Reading MD: Mal Ordoñez Measurements Intervals [place] Rate: 88 P: 31 AL: 178 QRS: -43 QRSD: 90 T: 3 QT: 354 QTc: 428 Interpretive Statements Normal sinus rhythm Left axis deviation Compared to ECG 07/01/2025 12:04:55 Left-axis deviation now present Sinus tachycardia no longer present Posterior QRS axis no longer present Myocardial infarct finding no longer present ST (T wave) deviation no longer present Electronically Signed On 07-02-2025 19:23:21 [employer] by Mal Ordoñez Please click the below link to view image of tracing.
[2025-07-02 20:07] LABS: AMPHET/METH SCREEN,URINE NEGATIVE (NEGATIVE); BARBITURATE SCREEN, URINE NEGATIVE (NEGATIVE); CANNABINOID SCREEN,URINE NEGATIVE (NEGATIVE); COCAINE SCREEN,URINE NEGATIVE (NEGATIVE)
[2025-07-03] VITALS (8 sets, daily range): BP systolic 104–119; BP diastolic 60–68; PULSE 67–101; RESP 15–24; TEMP 98.6–103.1; O2SAT 98–100
[2025-07-03 10:06] LABS: NUCLEATED RED BLOOD CELLS 0.0 % (0.0-0.19); PLATELET COUNT (AUTO) 112.0 K/uL (130-400); RED BLOOD CELL COUNT(AUTO) 4.79 MIL/uL (4.50-6.20); RED CELL DISTRIBUTION WIDTH 14.9 % (11.0-15.5); WHITE BLOOD COUNT (AUTO) 5.5 K/uL (4.8-10.8)
[2025-07-03 10:20] LABS: ASPARTATE AMINOTRANSFERASE 135.0 U/L (10-37); CREATININE 0.8 mg/dL (0.5-1.3); GLOMERULAR FILTR. RATE CALC 99.0 mL/min (>90); GLUCOSE,RANDOM 108.0 mg/dL (70-105); SODIUM SERUM 129.0 mmol/L (136-145); TOTAL PROTEIN, SERUM 5.4 g/dL (6.0-8.3); UREA NITROGEN, BLOOD 10.0 mg/dL (7-18)
--- NOTE | 2025-07-03 10:39 | PN ---
[facility] PROGRESS NOTE Date of Service: Jul 03, 2025 Time of Service: 10:39 SUBJECTIVE: 07/02/2025: Patient was seen and evaluated bedside this morning. He is awake, alert, oriented x3, saturating 95% at room air. Patient is still complains of generalized weakness, says that he was not eating, drinking water for the past 2 weeks. Patient has normal strength in upper and lower extremities, patient is able to sit on his own from supine position, no nuchal rigidity. He denies chest pain, shortness of breath, palpitations. Morning lab showed sodium 132, potassium 3.6, white count 6.7, procalcitonin 3.34, lactic acid 1.8. Pending blood, urine cultures, CT abdomen. Physical therapy and evaluation was requested for mobilizing the patient. 07/03/2025: Patient was seen and evaluated bedside this morning. He is awake, alert, oriented x3, saturating 95% at room air. Patient says that he feel weak, denies any other symptoms. This morning his temperature was 102.9, lactic acid 1.8, protocol 3.34. Urine culture showed mixed skin danny contamination, blood culture showed no growth after48 hours, Legionella urine antigen was negative. Infectious Disease was consulted for further evaluation. Dr. Abebe stopped Zosyn, started patient on IV Rocephin, doxycycline. REVIEW OF SYSTEMS Fourteen point ROS was obtained all relevant positive documented otherwise ROS negative PHYSICAL EXAM GENERAL APPEARANCE: The patient is awake, alert, and oriented, in no acute cardiopulmonary distress. NEUROLOGICAL: Cranial nerves II-XII grossly intact. Motor is 5/5 in bilateral upper and lower extremities proximal to distal. No sensory deficits. HEENT: Face is symmetric. Pupils are equal and reactive. Extraocular movements are intact. NECK: Supple. No JVD. No thyromegaly. No submental, submandibular, pre- /postauricular, occipital or supraclavicular lymphadenopathy. CHEST: Normal chest expansion. No Telemetry. LUNGS: Absence of any rales, rhonchi or any wheezing. CARDIOVASCULAR: Regular. S1 and S2 normal. No appreciable rubs, murmurs or gallops. ABDOMEN: Soft, nontender, and nondistended. There is no rebound, voluntary guarding, or rigidity. : Deferred. No Theodore. EXTREMITIES: Non-edematous and not cyanotic. No clubbing. Good capillary refill. SKIN: No skin breakdown. Vital Signs (last 8hr) Date Time Temp Pulse Resp B/P (MAP) Pulse Ox O2 Delivery O2 Flow Rate FiO2 07/03/25 09:00 102.9 07/03/25 08:00 102.9 67 15 112/67 94 Room Air 07/03/25 04:00 98.8 82 20 104/64 95 Room Air LABS: Laboratory: Test 07/03/25 09:22 07/02/25 19:45 07/02/25 18:39 07/02/25 10:24 Range/Units White Blood Count 5.5 4.8-10.8 K/uL Red Blood Count 4.79 4.50-6.20 MIL/uL Hemoglobin 12.9 L 14.0-18.0 g/dL Hematocrit 37.0 L 42-54 % Mean Corpuscular Volume 77.2 L 79-99 fL Mean Corpuscular Hemoglobin 26.9 L 27.0-33.0 pg Mean Corpuscular Hemoglobin Concent 34.9 32.0-36.0 g/dL Red Cell Distribution Width 14.9 11.0-15.5 % Platelet Count 112 L 130-400 K/uL Mean Platelet Volume 11.8 H 7.5-10.5 fL Nucleated Red Blood Cells 0.0 0.0-0.19 % Sodium Level 129 L 136-145 mmol/L Potassium Level 3.3 L 3.5-5.1 mmol/L Chloride Level 96 L 101-111 mmol/L Carbon Dioxide Level 26 21-32 mmol/L Blood Urea Nitrogen 10 7-18 mg/dL Creatinine 0.8 0.5-1.3 mg/dL Glomerular Filtration Rate Calc 99 >90 mL/min Random Glucose 108 H 70-105 mg/dL Total Calcium 7.0 L 8.5-10.1 mg/dL Total Bilirubin 0.6 0.2-1.0 mg/dL Aspartate Amino Transf (AST/SGOT) 135 H 10-37 U/L Alanine Aminotransferase (ALT/SGPT) 137 H 12-78 U/L Alkaline Phosphatase 66 50-136 U/L Total Protein 5.4 L 6.0-8.3 g/dL Albumin 2.1 L 3.5-5.0 g/dL Urine Random Sodium 32 L 40-220 mmol/l Urine Opiates Screen NEGATIVE NEGATIVE Urine Barbiturates Screen NEGATIVE NEGATIVE Urine Phencyclidine Screen NEGATIVE NEGATIVE Urine Amphetamines Screen NEGATIVE NEGATIVE Urine Benzodiazepines Screen NEGATIVE NEGATIVE Urine Cocaine Screen NEGATIVE NEGATIVE Urine Marijuana (THC) Screen NEGATIVE NEGATIVE Troponin I High Sensitivity 7 4-75 ng/L Lactic Acid Level 1.8 0.8-2.5 mmol/L Procalcitonin 3.34 H 0.05-0.5 ng/mL Hepatitis A IgM Antibody Non-Reactive Nonreactive Hepatitis B Surface Antigen. Non-Reactive Nonreactive Hepatitis B Core IgM Antibody Non-Reactive Negative Hepatitis C Antibody Non-Reactive Nonreactive Test 07/02/25 04:26 07/01/25 13:05 07/01/25 12:55 07/01/25 12:35 Range/Units Immature Granulocyte % (Auto) 0.7 0-1 % Neutrophils (%) (Auto) 86.5 H 40.0-77.0 % Lymphocytes (%) (Auto) 9.1 L 21.0-51.0 % Monocytes (%) (Auto) 3.4 3.0-13.0 % Eosinophils (%) (Auto) 0.0 0.0-8.0 % Basophils (%) (Auto) 0.3 0.0-5.0 % Neutrophils # (Auto) 5.8 1.8-7.7 K/uL Lymphocytes # (Auto) 0.6 L 1.0-4.8 K/uL Monocytes # (Auto) 0.2 0.1-1.0 K/uL Eosinophils # (Auto) 0.00 0.00-0.70 K/uL Basophils # (Auto) 0.02 0.00-0.20 K/uL Absolute Immature Granulocyte (auto 0.05 0-1 K/uL White Cell Morphology Comment See comments Serum Osmolality 272 L 278-305 mOsm/kg Magnesium Level 2.50 H 1.80-2.40 mg/dL Thyroid Stimulating Hormone (TSH) 1.95 0.36-3.74 uIU/mL Group A Streptococcus Rapid negative NEGATIVE Urine Color YELLOW YELLOW Urine Appearance CLEAR CLEAR Urine pH 6.0 5.0-8.0 Urine Specific [place] 1.021 1.001-1.031 Urine Protein 30 H NEGATIVE mg/dL Urine Glucose (UA) NEGATIVE NEGATIVE mg/dL Urine Ketones NEGATIVE NEGATIVE mg/dL Urine Occult Blood +- (TRACE) H NEGATIVE Urine Nitrate NEGATIVE NEGATIVE Urine Bilirubin NEGATIVE NEGATIVE mg/dL Urine Urobilinogen 3 H 0.2-1.0 mg/dL Urine Leukocyte Esterase NEGATIVE NEGATIVE Yesenia/uL Urine RBC 0-1 0-1 /HPF Urine WBC 2-5 H 0-1 /HPF Urine Squamous Epithelial Cells RARE 0-2 /HPF Urine Bacteria None None Seen /HPF Influenza Type A Antigen Negative For Type A NEGATIVE Influenza Type B Antigen Negative For Type B NEGATIVE SARS-CoV-2, RNA, NAAT NEGATIVE SARS CoV-2 NEGATIVE Test 07/01/25 12:18 Range/Units Direct Bilirubin 0.3 0.0-0.3 mg/dL Total Creatine Kinase 251 #H 21-232 U/L Lipase 43 16-77 U/L Current Medications Medications (Trade) Dose Ordered Sig/Drew Route PRN Reason Start Time Stop Time Status Last Admin Dose Admin Acetaminophen (TYLenol 325MG TAB) 650 mg Q4H PRN PO TEMPERATURE GREATER THAN 101.5 07/01/25 17:30 07/31/25 17:29 07/03/25 09:00 650 MG Famotidine (Pepcid 20mg Tab) 20 mg DAILY PO 07/02/25 09:00 07/15/25 11:00 07/03/25 08:26 20 MG Hydralazine HCl (APRESOLine 20MG INJ) 5 mg Q6H PRN IV ADMINISTER FOR SBP > 160 07/01/25 17:30 07/31/25 17:29 Lactulose (Constulose 20gm/ 30ml Udcup) 20 gm BID PRN PO CONSTIPATION 07/01/25 17:30 07/31/25 17:29 Magnesium Sulfate 50 ml @ 0 mls/hr PROTOCOL PRN IV low mag level 07/01/25 17:30 07/31/25 17:29 Ondansetron HCl (zoFRAN 4MG INJ) 4 mg Q6H PRN IVP NAUSEA/VOMITING 07/01/25 17:30 07/31/25 17:29 Piperacillin Sod/ Tazobactam Sod (Zosyn 3.375gm+NS 50ml) 3.375 gm Q8H IVPB 07/01/25 17:30 07/11/25 17:29 07/03/25 08:26 3.375 GM Potassium Chloride 100 ml @ 50 mls/hr AD PRN IV POTASSIUM PROTOCOL 07/01/25 17:30 07/01/25 17:19 DC Potassium Chloride 100 ml @ 100 mls/hr AD PRN IV POTASSIUM PROTOCOL 07/01/25 17:30 07/31/25 17:29 Potassium Chloride (K-Dur/Klor-Con 20meq) 20 meq AD PRN PO POTASSIUM PROTOCOL 07/01/25 17:30 07/31/25 17:29 07/02/25 18:23 20 MEQ Potassium Chloride (KCl 10% Elixir 20meq/15ml) 20 meq AD PRN PO POTASSIUM PROTOCOL 07/01/25 17:30 07/31/25 17:29 Sodium Chloride 1,000 ml @ 120 mls/hr Q8H20M IV 07/01/25 17:30 07/31/25 17:29 07/03/25 03:54 120 MLS/HR Sodium Chloride (NS 50ml) 50 ml AD IV 07/01/25 17:30 07/02/25 07:26 DC DIAGNOSTICS / RADIOLOGY: [ ] ASSESSMENT: SIRs with out organ dysfunction POA Hyponatremia POA Elevated LFTs POA Hepatic steatosis. Evidence by ultrasound PLAN: SIRs with out organ dysfunction POA On presentation patient's temperature 101.3, heart rate 110, respiratory rate 24, lactic acid 1.7 Urine negative for UTI, positive for trace occult blood Urine culture showed mixed skin danny contamination, blood culture showed no growth after48 hours, Legionella urine antigen was negative Zosyn was stopped today by ID Patient started on Rocephin 1 g IV Q 24 (day 1), doxycycline 250 mL IV q.12h (day 1) by ID Pending CT abdomen pelvis Hyponatremia POA On presentation labs showed sodium 127 Morning lab showed sodium trending down to 129 from 132 Patient is currently receiving sodium chloride 120 mL/hour Elevated LFTs POA On presentation labs showed AST 155, ALT 189, ALP 72 Abdominal ultrasound revealed hepatic steatosis Today AST 135, ALT 137 Patient has history of alcohol abuse, patient was started on CIWA protocol Pending CT abdomen report PRN: MEDICATIONS Tylenol 650 mg po every 4 hrs for fever zofran 4 mg IV every 6 hrs for n/v Hydralazine 5 mg IV every 4 hrs systolic pressure > 160 bowel regiment: lactulose 20 gm PO BID PRN constipation Supportive measures: DVT prophylaxis with SCDs GI prophylaxis with Pepcid 20 mg daily p.o. ATTESTATION BY PHYSICIAN I have seen and examined the patient. I reviewed the documentation, medical decision making, and treatment plan as noted by the resident physician above. I agree with the findings and plan of care. UNRULY HERNANDEZ MD, ADIL SHAH QUADRI MD Jul 03, 2025 10:39
[2025-07-03] MEDS ORDERED: PHARMACY COMMUNICATION MISC PRN (12:00)
[2025-07-03] MEDS ORDERED: PROMETHAZINE HCL 25 MG TABLET PO PRN (12:00)
--- NOTE | 2025-07-03 12:45 | HMCSR ---
APPROVED REPORT EXAM: 3D/Two-dimensional and M-mode echocardiogram with Doppler and color Doppler. INDICATION ICD: Rule out endocarditis 2D Dimensions RVDd 3.9 cm LVEF(%) 66.2 (>50%) LVED Vol(simp.) 77.0 mL IVSd 1.0 (0.7-1.1cm) FS(%) 37 % LVES Vol(simp.) 37.0 mL LVDd 5.1 (3.8-5.6cm) LA (2D) 3.5 (1.6-4.0cm) LVEF(%, simp.) 52 % PWd 1.3 (0.7-1.1cm) Ao Root(2D) 3.7 (2.0-3.7cm) LA ESV INDEX (BP) 28.94 mL/m2 IVSs 1.4 cm LVOT diam 2.2 (1.8-2.4cm) LVDs 3.2 (2.5-4.0cm) IVC diam 1.5 cm PWs 1.4 cm Deformation Strain Apical 4 -15.3 % Apical 2 -14.1 % Apical 3 -15.2 % Global Strain -14.8 % M-Mode Dimensions EPSS 0.5 cm LA (MM) 4.2 (1.6-4.0cm) Ao Root(MM) 3.8 (2.0-3.7cm) Aortic Valve AoV Vmax 1.3 m/s Ao Peak GR 6.8 mmHg LVOT Vmax 1.2 m/s AoV VTI 0.2 m Ao Mean GR 4.3 mmHg LVOT VTI 0.19 m KIA (VMAX) 3.59 cm2 KIA (VTI) 3.5 cm2 Mitral Valve MV E Vmax 51.6 cm/s DECEL Time 116 ms MV A Vmax 49.2 cm/s P 1/2 T 41 ms E/A ratio 1.0 MVA (PHT) 5.3 cm2 TDI E/E' Medial 5.1 E/E' Lateral 4.9 Medial E' Peak V 10.20 cm/s Lateral E' Peak V 10.47 cm/s Pulmonary Valve PV Vmax 1.0 m/s PI End [place]. Teodoro 104.6 cm/s PV Mean GR 2.5 mmHg PV Peak GR 4.0 mmHg Tricuspid Valve TR Vmax 1.6 m/s RAP (EST) 3 mmHg RVSP 13.8 mmHg TR Peak GR 10.8 mmHg Left Ventricle The left ventricle is normal size. There is normal LV segmental wall motion. Global strain of -15%. There is normal left ventricular wall thickness. LVEF is 50-55%. 3D volume EF 52% Indeterminate diastolic dysfunction. Right Ventricle The right ventricle is normal size. The right ventricular systolic function is normal. Atria The left atrium size is normal. The right atrium size is normal. Aortic Valve Aortic valve is trileaflet and opens well. No aortic regurgitation is present. No aortic valvular vegetation noted. There is no aortic valvular stenosis. Mitral Valve The mitral valve is normal in structure. There is mild mitral valve regurgitation noted. There are no mitral valve vegetation noted. There is no mitral valve stenosis. Tricuspid Valve The tricuspid valve is normal in structure. There is trace of tricuspid valve regurgitation noted. There is no tricuspid valve vegetation. Pulmonic Valve The pulmonary valve is normal in structure. There is trace of pulmonic valvular regurgitation. Great Vessels The aortic root is normal in size. The IVC is normal in size and collapses >50% with inspiration. Pericardium There is no pericardial effusion. Other Information Quality : Adequate Conclusion LVEF is 50-55%. 3D volume EF 52% There is normal LV segmental wall motion. Global strain of -15%.
[2025-07-03] MEDS: DOXYCYCLINE 100MG+NS 250ML 250 ML IV SCH (17:47)
[2025-07-04] VITALS (7 sets, daily range): BP systolic 92–121; BP diastolic 62–80; PULSE 66–108; RESP 16–24; TEMP 97.9–102; O2SAT 95–98
[2025-07-04 05:30] LABS: NUCLEATED RED BLOOD CELLS 0.0 % (0.0-0.19); PLATELET COUNT (AUTO) 129.0 K/uL (130-400); RED BLOOD CELL COUNT(AUTO) 4.62 MIL/uL (4.50-6.20); RED CELL DISTRIBUTION WIDTH 15.1 % (11.0-15.5); WHITE BLOOD COUNT (AUTO) 7.3 K/uL (4.8-10.8)
[2025-07-04 05:54] LABS: ASPARTATE AMINOTRANSFERASE 258 U/L (10-37); CREATININE 0.8 mg/dL (0.5-1.3); GLOMERULAR FILTR. RATE CALC 99 mL/min (>90); GLUCOSE,RANDOM 105 mg/dL (70-105); LDL DIRECT 30 mg/dL (0-99); SODIUM SERUM 134 mmol/L (136-145); TOTAL PROTEIN, SERUM 5.4 g/dL (6.0-8.3); UREA NITROGEN, BLOOD 10 mg/dL (7-18)
[2025-07-04 08:59] LABS: INR 1.15 (0.85-1.15)
[2025-07-04 09:08] LABS: % IRON SATURATION 23.3 % (30-44); IRON, SERUM 31.0 mcg/dL (65-175)
--- NOTE | 2025-07-04 09:32 | PN ---
[facility] PROGRESS NOTE Date of Service: Jul 04, 2025 Time of Service: 09:32 SUBJECTIVE: 07/02/2025: Patient was seen and evaluated bedside this morning. He is awake, alert, oriented x3, saturating 95% at room air. Patient is still complains of generalized weakness, says that he was not eating, drinking water for the past 2 weeks. Patient has normal strength in upper and lower extremities, patient is able to sit on his own from supine position, no nuchal rigidity. He denies chest pain, shortness of breath, palpitations. Morning lab showed sodium 132, potassium 3.6, white count 6.7, procalcitonin 3.34, lactic acid 1.8. Pending blood, urine cultures, CT abdomen. Physical therapy and evaluation was requested for mobilizing the patient. 07/03/2025: Patient was seen and evaluated bedside this morning. He is awake, alert, oriented x3, saturating 95% at room air. Patient says that he feel weak, denies any other symptoms. This morning his temperature was 102.9, lactic acid 1.8, protocol 3.34. Urine culture showed mixed skin danny contamination, blood culture showed no growth after48 hours, Legionella urine antigen was negative. Infectious Disease was consulted for further evaluation. Dr. Abebe stopped Zosyn, started patient on IV Rocephin, doxycycline. 07/04/2025: Patient was seen and evaluated bedside this morning. He is awake, alert, oriented x3, saturating 98% at room air. Patient says that he is feeling better and says that got back his strength and is able to walk with the help of physical therapist. Patient denies any new symptoms. Morning lab showed sodium 134, AST 258, ALT 214, triglycerides 253. Echocardiogram showed left ventricular ejection fraction 50-55%. Continue IV Rocephin, IV doxycycline. Pending typhus murine IgG antibody. Infectious disease on board, we will continue to follow the recommendations. REVIEW OF SYSTEMS Fourteen point ROS was obtained all relevant positive documented otherwise ROS negative PHYSICAL EXAM GENERAL APPEARANCE: The patient is awake, alert, and oriented, in no acute cardiopulmonary distress. NEUROLOGICAL: Cranial nerves II-XII grossly intact. Motor is 5/5 in bilateral upper and lower extremities proximal to distal. No sensory deficits. HEENT: Face is symmetric. Pupils are equal and reactive. Extraocular movements are intact. NECK: Supple. No JVD. No thyromegaly. No submental, submandibular, pre- /postauricular, occipital or supraclavicular lymphadenopathy. CHEST: Normal chest expansion. No Telemetry. LUNGS: Absence of any rales, rhonchi or any wheezing. CARDIOVASCULAR: Regular. S1 and S2 normal. No appreciable rubs, murmurs or gallops. ABDOMEN: Soft, nontender, and nondistended. There is no rebound, voluntary guarding, or rigidity. : Deferred. No Theodore. EXTREMITIES: Non-edematous and not cyanotic. No clubbing. Good capillary refill. SKIN: No skin breakdown. Vital Signs (last 8hr) Date Time Temp Pulse Resp B/P (MAP) Pulse Ox O2 Delivery O2 Flow Rate FiO2 07/04/25 08:00 100.9 106 16 107/66 93 Room Air 07/04/25 04:00 98.6 66 18 121/80 98 Room Air LABS: Laboratory: Test 07/04/25 07:33 07/04/25 05:16 07/03/25 09:22 07/02/25 19:45 Range/Units Prothrombin Time 12.0 H 9.6-11.6 SEC Prothromb Time International Ratio 1.15 0.85-1.15 Iron Level 31 L 65-175 mcg/dL Total Iron Binding Capacity 133 L 250-450 mcg/dL Percent Iron Saturation 23.3 L 30-44 % Total Creatine Kinase 145 # 21-232 U/L White Blood Count 7.3 # 4.8-10.8 K/uL Red Blood Count 4.62 4.50-6.20 MIL/uL Hemoglobin 12.6 L 14.0-18.0 g/dL Hematocrit 36.1 L 42-54 % Mean Corpuscular Volume 78.1 L 79-99 fL Mean Corpuscular Hemoglobin 27.3 27.0-33.0 pg Mean Corpuscular Hemoglobin Concent 34.9 32.0-36.0 g/dL Red Cell Distribution Width 15.1 11.0-15.5 % Platelet Count 129 L 130-400 K/uL Mean Platelet Volume 11.4 H 7.5-10.5 fL Nucleated Red Blood Cells 0.0 0.0-0.19 % Sodium Level 134 L 136-145 mmol/L Potassium Level 3.4 L 3.5-5.1 mmol/L Chloride Level 100 L 101-111 mmol/L Carbon Dioxide Level 27 21-32 mmol/L Blood Urea Nitrogen 10 7-18 mg/dL Creatinine 0.8 0.5-1.3 mg/dL Glomerular Filtration Rate Calc 99 >90 mL/min Random Glucose 105 70-105 mg/dL Total Calcium 7.3 L 8.5-10.1 mg/dL Total Bilirubin 0.5 0.2-1.0 mg/dL Aspartate Amino Transf (AST/SGOT) 258 H 10-37 U/L Alanine Aminotransferase (ALT/SGPT) 214 #H 12-78 U/L Alkaline Phosphatase 73 50-136 U/L Total Protein 5.4 L 6.0-8.3 g/dL Albumin 2.1 L 3.5-5.0 g/dL Triglycerides Level 253 H 30-200 mg/dL Cholesterol Level 69 <200 mg/dL LDL Cholesterol 30 0-99 mg/dL HDL Cholesterol < 10 L 29-71 mg/dL Serum Alcohol < 3 0-10 mg/dL Urine Osmolality 588 50-1200 mOsm/kg Urine Random Sodium 32 L 40-220 mmol/l Urine Opiates Screen NEGATIVE NEGATIVE Urine Barbiturates Screen NEGATIVE NEGATIVE Urine Phencyclidine Screen NEGATIVE NEGATIVE Urine Amphetamines Screen NEGATIVE NEGATIVE Urine Benzodiazepines Screen NEGATIVE NEGATIVE Urine Cocaine Screen NEGATIVE NEGATIVE Urine Marijuana (THC) Screen NEGATIVE NEGATIVE Test 07/02/25 18:39 07/02/25 10:24 Range/Units Troponin I High Sensitivity 7 4-75 ng/L Lactic Acid Level 1.8 0.8-2.5 mmol/L Procalcitonin 3.34 H 0.05-0.5 ng/mL Hepatitis A IgM Antibody Non-Reactive Nonreactive Hepatitis B Surface Antigen. Non-Reactive Nonreactive Hepatitis B Core IgM Antibody Non-Reactive Negative Hepatitis C Antibody Non-Reactive Nonreactive Current Medications Medications (Trade) Dose Ordered Sig/Drew Route PRN Reason Start Time Stop Time Status Last Admin Dose Admin Acetaminophen (TYLenol 325MG TAB) 650 mg Q4H PRN PO TEMPERATURE GREATER THAN 101.5 07/01/25 17:30 07/31/25 17:29 07/03/25 20:36 650 MG Ceftriaxone Sodium (ROCEphine 1G INJ) 1 gm Q24H IVPB 07/03/25 13:30 07/03/25 15:42 DC Ceftriaxone Sodium (ROCEphine 1G INJ) 1 gm Q24H IVPB 07/03/25 21:00 07/13/25 20:59 07/03/25 20:36 1 GM Chlordiazepoxide HCl (LIBrium 25 MG CAP) 25 mg Q2H PRN PO ALCOHOL WITHDRAWAL PROTOCOL 07/03/25 12:00 07/10/25 11:59 Diazepam (VALium 5 MG/ML 2 ML SYG) 10 mg Q4H PRN IVP ALCOHOL WITHDRAWAL PROTOCOL 07/03/25 12:00 07/10/25 11:59 Doxycycline Hyclate 250 ml @ 125 mls/hr Q12H IV 07/03/25 13:30 07/13/25 13:29 07/04/25 00:17 125 MLS/HR Famotidine (Pepcid 20mg Tab) 20 mg DAILY PO 07/02/25 09:00 07/15/25 11:00 07/04/25 08:56 20 MG Hydralazine HCl (APRESOLine 20MG INJ) 5 mg Q6H PRN IV ADMINISTER FOR SBP > 160 07/01/25 17:30 07/31/25 17:29 Lactulose (Constulose 20gm/ 30ml Udcup) 20 gm BID PRN PO CONSTIPATION 07/01/25 17:30 07/31/25 17:29 Lorazepam (AtiVAN) 2 mg Q4H PRN IVP ALCOHOL WITHDRAWAL PROTOCOL 07/03/25 12:00 07/10/25 11:59 Magnesium Sulfate 50 ml @ 0 mls/hr PROTOCOL PRN IV low mag level 07/01/25 17:30 07/31/25 17:29 Ondansetron HCl (zoFRAN 4MG INJ) 4 mg Q6H PRN IVP NAUSEA/VOMITING 07/01/25 17:30 07/31/25 17:29 Pharmacy Profile Note (Pharmacy Communication) 1 each PROTOCOL PRN MISC ETOH Withdrawal Score changes 07/03/25 12:00 07/10/25 11:59 Piperacillin Sod/ Tazobactam Sod (Zosyn 3.375gm+NS 50ml) 3.375 gm Q8H IVPB 07/01/25 17:30 07/03/25 13:17 DC 07/03/25 08:26 3.375 GM Potassium Chloride 100 ml @ 50 mls/hr AD PRN IV POTASSIUM PROTOCOL 07/01/25 17:30 07/01/25 17:19 DC Potassium Chloride 100 ml @ 100 mls/hr AD PRN IV POTASSIUM PROTOCOL 07/01/25 17:30 07/31/25 17:29 Potassium Chloride (K-Dur/Klor-Con 20meq) 20 meq AD PRN PO POTASSIUM PROTOCOL 07/01/25 17:30 07/31/25 17:29 07/04/25 08:57 20 MEQ Potassium Chloride (KCl 10% Elixir 20meq/15ml) 20 meq AD PRN PO POTASSIUM PROTOCOL 07/01/25 17:30 07/31/25 17:29 Promethazine HCl (Phenergan) 25 mg Q6H PRN PO NAUSEA 07/03/25 12:00 08/02/25 11:59 Sodium Chloride 1,000 ml @ 120 mls/hr Q8H20M IV 07/01/25 17:30 07/31/25 17:29 07/03/25 12:20 120 MLS/HR Sodium Chloride (NS 50ml) 50 ml AD IV 07/01/25 17:30 07/02/25 07:26 DC DIAGNOSTICS / RADIOLOGY: [ ] [place] [address] IMAGING REPORT Signed PATIENT: ANTONIO KING MR#: [id number] : 1960 SEX: M AGE: 64 LOCATION: S ORDER STATUS: ADM IN REPORT#: [id number] SERVICE 0000 REASON: rule out edocarditis ORDERING PHYSICIAN: JESSICA HOLT MD PROCEDURE: ECHO CMP - ECHO 2-D COMPLETE APPROVED REPORT EXAM: 3D/Two-dimensional and M-mode echocardiogram with Doppler and color Doppler. INDICATION ICD: Rule out endocarditis 2D Dimensions RVDd 3.9 cm LVEF(%) 66.2 (>50%) LVED Vol(simp.) 77.0 mL IVSd 1.0 (0.7-1.1cm) FS(%) 37 % LVES Vol(simp.) 37.0 mL LVDd 5.1 (3.8-5.6cm) LA (2D) 3.5 (1.6-4.0cm) LVEF(%, simp.) 52 % PWd 1.3 (0.7-1.1cm) Ao Root(2D) 3.7 (2.0-3.7cm) LA ESV INDEX (BP) 28.94 mL/m2 IVSs 1.4 cm LVOT diam 2.2 (1.8-2.4cm) LVDs 3.2 (2.5-4.0cm) IVC diam 1.5 cm PWs 1.4 cm Deformation Strain Apical 4 -15.3 % Apical 2 -14.1 % Apical 3 -15.2 % Global Strain -14.8 % M-Mode Dimensions EPSS 0.5 cm LA (MM) 4.2 (1.6-4.0cm) Ao Root(MM) 3.8 (2.0-3.7cm) Aortic Valve AoV Vmax 1.3 m/s Ao Peak GR 6.8 mmHg LVOT Vmax 1.2 m/s AoV VTI 0.2 m Ao Mean GR 4.3 mmHg LVOT VTI 0.19 m KIA (VMAX) 3.59 cm2 KIA (VTI) 3.5 cm2 Mitral Valve MV E Vmax 51.6 cm/s DECEL Time 116 ms MV A Vmax 49.2 cm/s P 1/2 T 41 ms E/A ratio 1.0 MVA (PHT) 5.3 cm2 TDI E/E' Medial 5.1 E/E' Lateral 4.9 Medial E' Peak V 10.20 cm/s Lateral E' Peak V 10.47 cm/s Pulmonary Valve PV Vmax 1.0 m/s PI End [place]. Teodoro 104.6 cm/s PV Mean GR 2.5 mmHg PV Peak GR 4.0 mmHg Tricuspid Valve TR Vmax 1.6 m/s RAP (EST) 3 mmHg RVSP 13.8 mmHg TR Peak GR 10.8 mmHg Left Ventricle The left ventricle is normal size. There is normal LV segmental wall motion. Global strain of -15%. There is normal left ventricular wall thickness. LVEF is 50-55%. 3D volume EF 52% Indeterminate diastolic dysfunction. Right Ventricle The right ventricle is normal size. The right ventricular systolic function is normal. Atria The left atrium size is normal. The right atrium size is normal. Aortic Valve Aortic valve is trileaflet and opens well. No aortic regurgitation is present. No aortic valvular vegetation noted. There is no aortic valvular stenosis. Mitral Valve The mitral valve is normal in structure. There is mild mitral valve regurgitation noted. There are no mitral valve vegetation noted. There is no mitral valve stenosis. Tricuspid Valve The tricuspid valve is normal in structure. There is trace of tricuspid valve regurgitation noted. There is no tricuspid valve vegetation. Pulmonic Valve The pulmonary valve is normal in structure. There is trace of pulmonic valvular regurgitation. Great Vessels The aortic root is normal in size. The IVC is normal in size and collapses >50% with inspiration. Pericardium There is no pericardial effusion. Other Information Quality : Adequate Conclusion LVEF is 50-55%. 3D volume EF 52% There is normal LV segmental wall motion. Global strain of -15%. DICTATED BY: KIM CANTRELL MD DATE: 07/03/25 0815 ELECTRONICALLY SIGNED BY: KIM CANTRELL MD DATE: 07/03/25 1245 ASSESSMENT: Sepsis of unknown etiology POA Hyponatremia POA Elevated LFTs POA Hepatic steatosis. Evidence by ultrasound PLAN: Sepsis of unknown etiology POA On presentation patient's temperature 101.3, heart rate 110, respiratory rate 24, lactic acid 1.7 Urine negative for UTI, positive for trace occult blood Urine culture showed mixed skin danny contamination, blood culture showed no growth after48 hours, Legionella urine antigen was negative Zosyn was stopped today by ID Continue on Rocephin 1 g IV Q 24 (day 2), doxycycline 250 mL IV q.12h (day 2) Pending CT abdomen pelvis Hyponatremia POA On presentation labs showed sodium 127 Morning lab showed sodium trending up to 134 Patient is currently receiving sodium chloride 120 mL/hour Elevated LFTs POA On presentation labs showed AST 155, ALT 189, ALP 72 Abdominal ultrasound revealed hepatic steatosis Today AST 258, ALT 214 Patient has history of alcohol abuse, patient was started on CIWA protocol Pending CT abdomen report PRN: MEDICATIONS Tylenol 650 mg po every 4 hrs for fever zofran 4 mg IV every 6 hrs for n/v Hydralazine 5 mg IV every 4 hrs systolic pressure > 160 bowel regiment: lactulose 20 gm PO BID PRN constipation Supportive measures: DVT prophylaxis with SCDs GI prophylaxis with Pepcid 20 mg daily p.o. ATTESTATION BY PHYSICIAN I have seen and examined the patient. I reviewed the documentation, medical decision making, and treatment plan as noted by the resident above. I agree with the findings and plan of care. Rogelio Harvey IV, MD, ADIL SHAH QUADRI MD Jul 04, 2025 09:32
--- NOTE | 2025-07-04 15:27 | PN ---
INFECTIOUS DISEASE PROGRESS NOTE Date of Service: Jul 04, 2025 SUBJECTIVE: This is a 64-year-old male patient who was seen and examined at bedside in room 120. This morning patient is still had a fever of a 100.9. Has erythematous rash to lower extremities and suspecting rickettsial infection. We will continue on doxycycline and ceftriaxone. Patient reported is unable to void movement since he was admitted. We will give lactulose. No reports of nausea or vomiting. We will continue to follow patient's care. PHYSICAL EXAM EYES: Anicteric. Pupils equal and reactive. HENT: No oral thrush seen, moist Oral mucosa NECK: Supple, no JVD or thyromegaly. LUNGS: Good air entry. No rales, no rhonchi. CARDIOVASCULAR: S1, S2 regular. No murmur heard. ABDOMEN: Soft, non tender, bowel sounds present. CENTRAL NERVOUS SYSTEM: Awake, alert, oriented x 3. SKIN: No rashes, no swelling. Lower extremities erythematous rash. LYMPHATICS: No peripheral lymphadenopathy. MUSCULOSKELETAL: No joint swelling, erythema or tenderness. EXTREMITIES: No cyanosis or clubbing BACK: No deformity, no pressure ulcer. GENITOURINARY: No dysuria or hematuria Vital Sign (Last 12 Hours) 07/04/25 07/04/25 07/04/25 07/04/25 04:00 08:00 08:00 12:00 Temp 98.6 100.9 100.2 Pulse 66 106 94 Resp 18 16 20 B/P (MAP) 121/80 107/66 112/70 Pulse Ox 98 98 93 96 O2 Delivery Room Air Room Air* Room Air Room Air O2 Flow Rate 0 FiO2 21 Intake & Output (last 24hrs) 07/03/25 07/03/25 07/04/25 15:00 23:00 07:00 Intake Total 800 ml Output Total 300 ml 1200 ml Balance -300 ml -400 ml LABS: Laboratory: Test 07/04/25 11:21 07/04/25 07:33 07/04/25 05:16 07/03/25 09:22 Range/Units Whole Blood Glucose 117 H 70-110 MG/DL Prothrombin Time 12.0 H 9.6-11.6 SEC Prothromb Time International Ratio 1.15 0.85-1.15 Iron Level 31 L 65-175 mcg/dL Total Iron Binding Capacity 133 L 250-450 mcg/dL Percent Iron Saturation 23.3 L 30-44 % Total Creatine Kinase 145 # 21-232 U/L White Blood Count 7.3 # 4.8-10.8 K/uL Red Blood Count 4.62 4.50-6.20 MIL/uL Hemoglobin 12.6 L 14.0-18.0 g/dL Hematocrit 36.1 L 42-54 % Mean Corpuscular Volume 78.1 L 79-99 fL Mean Corpuscular Hemoglobin 27.3 27.0-33.0 pg Mean Corpuscular Hemoglobin Concent 34.9 32.0-36.0 g/dL Red Cell Distribution Width 15.1 11.0-15.5 % Platelet Count 129 L 130-400 K/uL Mean Platelet Volume 11.4 H 7.5-10.5 fL Nucleated Red Blood Cells 0.0 0.0-0.19 % Sodium Level 134 L 136-145 mmol/L Potassium Level 3.4 L 3.5-5.1 mmol/L Chloride Level 100 L 101-111 mmol/L Carbon Dioxide Level 27 21-32 mmol/L Blood Urea Nitrogen 10 7-18 mg/dL Creatinine 0.8 0.5-1.3 mg/dL Glomerular Filtration Rate Calc 99 >90 mL/min Random Glucose 105 70-105 mg/dL Total Calcium 7.3 L 8.5-10.1 mg/dL Total Bilirubin 0.5 0.2-1.0 mg/dL Aspartate Amino Transf (AST/SGOT) 258 H 10-37 U/L Alanine Aminotransferase (ALT/SGPT) 214 #H 12-78 U/L Alkaline Phosphatase 73 50-136 U/L Total Protein 5.4 L 6.0-8.3 g/dL Albumin 2.1 L 3.5-5.0 g/dL Triglycerides Level 253 H 30-200 mg/dL Cholesterol Level 69 <200 mg/dL LDL Cholesterol 30 0-99 mg/dL HDL Cholesterol < 10 L 29-71 mg/dL Serum Alcohol < 3 0-10 mg/dL Test 07/02/25 19:45 07/02/25 18:39 Range/Units Urine Osmolality 588 50-1200 mOsm/kg Urine Random Sodium 32 L 40-220 mmol/l Urine Opiates Screen NEGATIVE NEGATIVE Urine Barbiturates Screen NEGATIVE NEGATIVE Urine Phencyclidine Screen NEGATIVE NEGATIVE Urine Amphetamines Screen NEGATIVE NEGATIVE Urine Benzodiazepines Screen NEGATIVE NEGATIVE Urine Cocaine Screen NEGATIVE NEGATIVE Urine Marijuana (THC) Screen NEGATIVE NEGATIVE Troponin I High Sensitivity 7 4-75 ng/L ASSESSMENT: Possible rickettsial infection. Thrombocytopenia. Elevated liver enzymes. Hyponatremia. Iron-deficiency anemia. Lower extremities erythematous rash. Constipation. PLAN: Continue doxycycline. Continue ceftriaxone. Give lactulose 20 g p.o. x1. Continue GI prophylaxis. Monitor and replace electrolytes. Continue pain management. This case was reviewed and discussed with my supervising physician Dr. Bolaños and the above assessment and plan was formulated and agreed upon. ATTESTATION BY PHYSICIAN I have seen and examined the patient. I reviewed the documentation, medical decision making, and treatment plan as noted by the mid-level provider above. I agree with the findings and plan of care. JEIMY BOLAÑOS MD, [facility] Jul 04, 2025 15:27
[2025-07-04] MEDS: LACTULOSE 20 GM/30 ML UDCUP PO ONE (18:33)
--- NOTE | 2025-07-04 19:50 | CONS ---
INFECTIOUS DISEASE CONSULTATION DATE OF SERVICE: 07/03/2025 REQUESTING PHYSICIAN: Dr. Rascon. REASON FOR CONSULTATION: Persistent fever and antibiotic management. HISTORY OF PRESENT ILLNESS: A 64-year-old male with a history of obesity who presents to hospital with fever, chills and a cough. The patient claims symptoms have been going on for about a week. Influenza antigen was negative. The patient started on Zosyn for continuing persistent fever. T-max overnight was 103. The patient found with elevated liver enzymes. Procalcitonin is positive at 3.34. Sodium is low. No dysuria, no frequency. Denies sick contact. Denies . PAST MEDICAL HISTORY: None. SURGICAL HISTORY: Left retinal surgical detachment. ALLERGIES: No known drug allergies. CURRENT MEDICATIONS: Include: 1. Tylenol. 2. Zosyn. 3. Zofran. SOCIAL HISTORY: No alcohol, tobacco, or illicit drug use. FAMILY HISTORY: Noncontributory. REVIEW OF SYSTEMS: Greater than 10 systems were reviewed. Negative except documented above. PHYSICAL EXAMINATION: GENERAL: Elderly male, awake, ill looking. VITAL SIGNS: Temperature 102.9, pulse 99, respiratory rate 18, blood pressure 105/60. EYES: No icterus. Pupils equal and reactive. HENT: No oral thrush seen. Moist oral mucosa. NECK: Supple. No JVD or thyromegaly. LUNGS: Good air entry. No rales, no rhonchi. CARDIOVASCULAR: S1, S2. Regular. No murmur heard. ABDOMEN: Soft, nontender. Bowel sound is present. CENTRAL NERVOUS SYSTEM: Awake, alert, oriented x 3. No focal deficits. SKIN: The patient has erythematous rashes on the lower extremities. LYMPHATIC: No peripheral lymphadenopathy. BACK: No deformity, no pressure ulcer. HEMATOLOGIC: No bleeding or petechial lesions seen. MUSCULOSKELETAL: No joint swelling, erythema, or tenderness. LABORATORY DATA: Procalcitonin 3.34, AST 135, ALT 137, sodium 129, potassium 3.3, BUN 10, creatinine 0.8. WBC 5.5, hemoglobin 12.9, platelets 112. Influenza antigen negative. Blood culture, no growth for today. Urine culture showed mixed danny. RADIOLOGY: Abdominal ultrasound revealed hepatic steatosis. Chest x-ray unremarkable. ASSESSMENT: A 64-year-old male presenting with fever. Current problems include; 1. Possible recurrence of infection. 2. Elevated liver enzymes. 3. Hypokalemia. 4. Hyponatremia. 5. Elevated liver enzymes. PLAN: 1. Discontinue Zosyn. 2. Start the patient on ceftriaxone. 3. Start the patient on doxycycline. 4. Obtain serology. 5. Continue Tylenol. 6. Follow up culture. 7. Continue DVT prophylaxis. 8. The patient will be followed closely. Thank you for allowing me to participate in the care of this patient. TID: [id number] RECEIPT: [id number]
[2025-07-05] VITALS (7 sets, daily range): BP systolic 106–121; BP diastolic 68–77; PULSE 75–91; RESP 16–24; TEMP 98.1–99.5; O2SAT 92–96
[2025-07-05 05:07] LABS: NUCLEATED RED BLOOD CELLS 0.0 % (0.0-0.19); PLATELET COUNT (AUTO) 149.0 K/uL (130-400); RED BLOOD CELL COUNT(AUTO) 4.53 MIL/uL (4.50-6.20); RED CELL DISTRIBUTION WIDTH 15.6 % (11.0-15.5); WHITE BLOOD COUNT (AUTO) 8.0 K/uL (4.8-10.8)
[2025-07-05 05:31] LABS: ASPARTATE AMINOTRANSFERASE 311.0 U/L (10-37); CREATININE 0.9 mg/dL (0.5-1.3); GLOMERULAR FILTR. RATE CALC 96.0 mL/min (>90); GLUCOSE,RANDOM 105.0 mg/dL (70-105); SODIUM SERUM 134.0 mmol/L (136-145); TOTAL PROTEIN, SERUM 5.5 g/dL (6.0-8.3); UREA NITROGEN, BLOOD 10.0 mg/dL (7-18)
[2025-07-05] MEDS: LACTULOSE 20 GM/30 ML UDCUP PO SCH (08:26)
[2025-07-05] MEDS: PoTASSium chloRIDE 20MEQ ER 20 MEQ ERTAB PO ONE (13:38)
--- NOTE | 2025-07-05 14:08 | PN ---
[facility] PROGRESS NOTE Date of Service: Jul 05, 2025 Time of Service: 14:07 SUBJECTIVE: 07/02/2025: Patient was seen and evaluated bedside this morning. He is awake, alert, oriented x3, saturating 95% at room air. Patient is still complains of generalized weakness, says that he was not eating, drinking water for the past 2 weeks. Patient has normal strength in upper and lower extremities, patient is able to sit on his own from supine position, no nuchal rigidity. He denies chest pain, shortness of breath, palpitations. Morning lab showed sodium 132, potassium 3.6, white count 6.7, procalcitonin 3.34, lactic acid 1.8. Pending blood, urine cultures, CT abdomen. Physical therapy and evaluation was requested for mobilizing the patient. 07/03/2025: Patient was seen and evaluated bedside this morning. He is awake, alert, oriented x3, saturating 95% at room air. Patient says that he feel weak, denies any other symptoms. This morning his temperature was 102.9, lactic acid 1.8, protocol 3.34. Urine culture showed mixed skin danny contamination, blood culture showed no growth after48 hours, Legionella urine antigen was negative. Infectious Disease was consulted for further evaluation. Dr. Abebe stopped Zosyn, started patient on IV Rocephin, doxycycline. 07/04/2025: Patient was seen and evaluated bedside this morning. He is awake, alert, oriented x3, saturating 98% at room air. Patient says that he is feeling better and says that got back his strength and is able to walk with the help of physical therapist. Patient denies any new symptoms. Morning lab showed sodium 134, AST 258, ALT 214, triglycerides 253. Echocardiogram showed left ventricular ejection fraction 50-55%. Continue IV Rocephin, IV doxycycline. Pending typhus murine IgG antibody. Infectious disease on board, we will continue to follow the recommendations. 06/04/2025: Patient was seen and examined bedside this morning. He is awake, alert, oriented x3, saturating 95% at room air. Patient says that he is doing good, denies any new symptoms. Abdomen/pelvis CT, head CT, lumbar spine CT all were unremarkable for acute findings. Morning lab showed AST 311, ALT 276, triglycerides 253. Continue IV Rocephin, IV doxycycline. We will discharge the patient tomorrow after getting clearance from Infectious Disease. REVIEW OF SYSTEMS Fourteen point ROS was obtained all relevant positive documented otherwise ROS negative PHYSICAL EXAM GENERAL APPEARANCE: The patient is awake, alert, and oriented, in no acute cardiopulmonary distress. NEUROLOGICAL: Cranial nerves II-XII grossly intact. Motor is 5/5 in bilateral upper and lower extremities proximal to distal. No sensory deficits. HEENT: Face is symmetric. Pupils are equal and reactive. Extraocular movements are intact. NECK: Supple. No JVD. No thyromegaly. No submental, submandibular, pre- /postauricular, occipital or supraclavicular lymphadenopathy. CHEST: Normal chest expansion. No Telemetry. LUNGS: Absence of any rales, rhonchi or any wheezing. CARDIOVASCULAR: Regular. S1 and S2 normal. No appreciable rubs, murmurs or gallops. ABDOMEN: Soft, nontender, and nondistended. There is no rebound, voluntary guarding, or rigidity. : Deferred. No Theodore. EXTREMITIES: Non-edematous and not cyanotic. No clubbing. Good capillary refi ll. SKIN: No skin breakdown. Vital Signs (last 8hr) Date Time Temp Pulse Resp B/P (MAP) Pulse Ox O2 Delivery O2 Flow Rate FiO2 07/05/25 08:00 98.1 88 18 121/70 92 Room Air 07/05/25 08:00 92 Room Air* 0 21 LABS: Laboratory: Test 07/05/25 08:28 07/05/25 04:45 07/04/25 11:21 07/04/25 07:33 Range/Units Ammonia 17 11-32 umol/L White Blood Count 8.0 4.8-10.8 K/uL Red Blood Count 4.53 4.50-6.20 MIL/uL Hemoglobin 12.2 L 14.0-18.0 g/dL Hematocrit 35.8 L 42-54 % Mean Corpuscular Volume 79.0 79-99 fL Mean Corpuscular Hemoglobin 26.9 L 27.0-33.0 pg Mean Corpuscular Hemoglobin Concent 34.1 32.0-36.0 g/dL Red Cell Distribution Width 15.6 H 11.0-15.5 % Platelet Count 149 130-400 K/uL Mean Platelet Volume 10.8 H 7.5-10.5 fL Nucleated Red Blood Cells 0.0 0.0-0.19 % Sodium Level 134 L 136-145 mmol/L Potassium Level 3.4 L 3.5-5.1 mmol/L Chloride Level 102 101-111 mmol/L Carbon Dioxide Level 25 21-32 mmol/L Blood Urea Nitrogen 10 7-18 mg/dL Creatinine 0.9 0.5-1.3 mg/dL Glomerular Filtration Rate Calc 96 >90 mL/min Random Glucose 105 70-105 mg/dL Total Calcium 7.6 L 8.5-10.1 mg/dL Total Bilirubin 0.5 0.2-1.0 mg/dL Aspartate Amino Transf (AST/SGOT) 311 H 10-37 U/L Alanine Aminotransferase (ALT/SGPT) 276 #H 12-78 U/L Alkaline Phosphatase 75 50-136 U/L Total Protein 5.5 L 6.0-8.3 g/dL Albumin 2.0 L 3.5-5.0 g/dL Whole Blood Glucose 117 H 70-110 MG/DL Prothrombin Time 12.0 H 9.6-11.6 SEC Prothromb Time International Ratio 1.15 0.85-1.15 Iron Level 31 L 65-175 mcg/dL Total Iron Binding Capacity 133 L 250-450 mcg/dL Percent Iron Saturation 23.3 L 30-44 % Total Creatine Kinase 145 # 21-232 U/L Cortisol AM Sample 18.6 6.2-19.4 ug/dL Test 07/04/25 05:16 Range/Units Triglycerides Level 253 H 30-200 mg/dL Cholesterol Level 69 <200 mg/dL LDL Cholesterol 30 0-99 mg/dL HDL Cholesterol < 10 L 29-71 mg/dL Current Medications Medications (Trade) Dose Ordered Sig/Drew Route PRN Reason Start Time Stop Time Status Last Admin Dose Admin Acetaminophen (TYLenol 325MG TAB) 650 mg Q4H PRN PO TEMPERATURE GREATER THAN 101.5 07/01/25 17:30 07/31/25 17:29 07/03/25 20:36 650 MG Ceftriaxone Sodium (ROCEphine 1G INJ) 1 gm Q24H IVPB 07/03/25 13:30 07/03/25 15:42 DC Ceftriaxone Sodium (ROCEphine 1G INJ) 1 gm Q24H IVPB 07/03/25 21:00 07/13/25 20:59 07/04/25 20:26 1 GM Chlordiazepoxide HCl (LIBrium 25 MG CAP) 25 mg Q2H PRN PO ALCOHOL WITHDRAWAL PROTOCOL 07/03/25 12:00 07/10/25 11:59 Diazepam (VALium 5 MG/ML 2 ML SYG) 10 mg Q4H PRN IVP ALCOHOL WITHDRAWAL PROTOCOL 07/03/25 12:00 07/10/25 11:59 Doxycycline Hyclate 250 ml @ 125 mls/hr Q12H IV 07/03/25 13:30 07/13/25 13:29 07/05/25 13:24 125 MLS/HR Famotidine (Pepcid 20mg Tab) 20 mg DAILY PO 07/02/25 09:00 07/15/25 11:00 07/05/25 08:26 20 MG Hydralazine HCl (APRESOLine 20MG INJ) 5 mg Q6H PRN IV ADMINISTER FOR SBP > 160 07/01/25 17:30 07/31/25 17:29 Lactulose (Constulose 20gm/ 30ml Udcup) 20 gm BID PRN PO CONSTIPATION 07/01/25 17:30 07/04/25 11:05 DC Lactulose (Constulose 20gm/ 30ml Udcup) 20 gm DAILY PO 07/05/25 09:00 07/31/25 17:29 07/05/25 08:26 20 GM Lorazepam (AtiVAN) 2 mg Q4H PRN IVP ALCOHOL WITHDRAWAL PROTOCOL 07/03/25 12:00 07/10/25 11:59 Magnesium Sulfate 50 ml @ 0 mls/hr PROTOCOL PRN IV low mag level 07/01/25 17:30 07/31/25 17:29 Ondansetron HCl (zoFRAN 4MG INJ) 4 mg Q6H PRN IVP NAUSEA/VOMITING 07/01/25 17:30 07/31/25 17:29 Pharmacy Profile Note (Pharmacy Communication) 1 each PROTOCOL PRN MISC ETOH Withdrawal Score changes 07/03/25 12:00 07/10/25 11:59 Piperacillin Sod/ Tazobactam Sod (Zosyn 3.375gm+NS 50ml) 3.375 gm Q8H IVPB 07/01/25 17:30 07/03/25 13:17 DC 07/03/25 08:26 3.375 GM Potassium Chloride 100 ml @ 50 mls/hr AD PRN IV POTASSIUM PROTOCOL 07/01/25 17:30 07/01/25 17:19 DC Potassium Chloride 100 ml @ 100 mls/hr AD PRN IV POTASSIUM PROTOCOL 07/01/25 17:30 07/31/25 17:29 07/05/25 08:27 100 MLS/HR Potassium Chloride (K-Dur/Klor-Con 20meq) 20 meq AD PRN PO POTASSIUM PROTOCOL 07/01/25 17:30 07/31/25 17:29 07/04/25 18:33 20 MEQ Potassium Chloride (KCl 10% Elixir 20meq/15ml) 20 meq AD PRN PO POTASSIUM PROTOCOL 07/01/25 17:30 07/31/25 17:29 Promethazine HCl (Phenergan) 25 mg Q6H PRN PO NAUSEA 07/03/25 12:00 08/02/25 11:59 Sodium Chloride 1,000 ml @ 120 mls/hr Q8H20M IV 07/01/25 17:30 07/31/25 17:29 07/04/25 10:01 120 MLS/HR Sodium Chloride (NS 50ml) 50 ml AD IV 07/01/25 17:30 07/02/25 07:26 DC DIAGNOSTICS / RADIOLOGY: [ ] ASSESSMENT: Sepsis of unknown etiology POA Hyponatremia POA Elevated LFTs POA Hepatic steatosis. Evidence by ultrasound PLAN: Sepsis of unknown etiology POA On presentation patient's temperature 101.3, heart rate 110, respiratory rate 24, lactic acid 1.7 Urine negative for UTI, positive for trace occult blood Urine culture showed mixed skin danny contamination, blood culture showed no growth after48 hours, Legionella urine antigen was negative Zosyn was stopped today by ID Continue on Rocephin 1 g IV Q 24 (day 3), doxycycline 250 mL IV q.12h (day 3) Hyponatremia POA On presentation labs showed sodium 127 Morning lab showed sodium trending up to 134 Patient is currently receiving sodium chloride 120 mL/hour Elevated LFTs POA On presentation labs showed AST 155, ALT 189, ALP 72 Abdominal ultrasound revealed hepatic steatosis Today AST 311, ALT 276 Patient has history of alcohol abuse, patient was started on CIWA protocol Pending CT abdomen report PRN: MEDICATIONS Tylenol 650 mg po every 4 hrs for fever zofran 4 mg IV every 6 hrs for n/v Hydralazine 5 mg IV every 4 hrs systolic pressure > 160 bowel regiment: lactulose 20 gm PO BID PRN constipation Supportive measures: DVT prophylaxis with SCDs GI prophylaxis with Pepcid 20 mg daily p.o. ATTESTATION BY PHYSICIAN I have seen and examined the patient. I reviewed the documentation, medical decision making, and treatment plan as noted by the resident above. I agree with the findings and plan of care. Rogelio Harvey IV, MD, ADIL SHAH QUADRI MD Jul 05, 2025 14:08
--- NOTE | 2025-07-05 15:01 | PN ---
INFECTIOUS DISEASE PROGRESS NOTE Date of Service: Jul 05, 2025 SUBJECTIVE: This 64-year-old female patient is being seen today at bedside. Awake, alert and oriented x3. patient denies chest pain or shortness of breath at this time. No dysuria or hematuria. She continues on Rocephin and doxycycline. No growth noted to blood cultures. Pending typhus IgG results. Liver enzymes continue to be elevated. We continue to follow patient closely. PHYSICAL EXAM EYES: Anicteric. Pupils equal and reactive. HENT: No oral thrush seen, moist Oral mucosa NECK: Supple, no JVD or thyromegaly. LUNGS: Good air entry. No rales, no rhonchi. CARDIOVASCULAR: S1, S2 regular. No murmur heard. ABDOMEN: Soft, non tender, bowel sounds present. CENTRAL NERVOUS SYSTEM: Awake, alert, oriented x 3. SKIN: No rashes, no swelling. Lower extremities erythematous rash. LYMPHATICS: No peripheral lymphadenopathy. MUSCULOSKELETAL: No joint swelling, erythema or tenderness. EXTREMITIES: No cyanosis or clubbing BACK: No deformity, no pressure ulcer. GENITOURINARY: No dysuria or hematuria Vital Sign (Last 12 Hours) 07/05/25 07/05/25 07/05/25 07/05/25 04:00 08:00 08:00 12:00 Temp 99.0 98.1 98.2 Pulse 75 88 80 Resp 24 18 18 B/P (MAP) 110/77 121/70 109/74 Pulse Ox 95 92 92 95 O2 Delivery Room Air Room Air* Room Air Room Air O2 Flow Rate 0 FiO2 21 Intake & Output (last 24hrs) 07/04/25 07/04/25 07/05/25 15:00 23:00 07:00 Intake Total 600 ml Output Total 1200 ml 1500 ml Balance -600 ml -1500 ml LABS: Laboratory: Test 07/05/25 08:28 07/05/25 04:45 07/04/25 11:07/04/25 07:33 Range/Units Ammonia 17 11-32 umol/L White Blood Count 8.0 4.8-10.8 K/uL Red Blood Count 4.53 4.50-6.20 MIL/uL Hemoglobin 12.2 L 14.0-18.0 g/dL Hematocrit 35.8 L 42-54 % Mean Corpuscular Volume 79.0 79-99 fL Mean Corpuscular Hemoglobin 26.9 L 27.0-33.0 pg Mean Corpuscular Hemoglobin Concent 34.1 32.0-36.0 g/dL Red Cell Distribution Width 15.6 H 11.0-15.5 % Platelet Count 149 130-400 K/uL Mean Platelet Volume 10.8 H 7.5-10.5 fL Nucleated Red Blood Cells 0.0 0.0-0.19 % Sodium Level 134 L 136-145 mmol/L Potassium Level 3.4 L 3.5-5.1 mmol/L Chloride Level 102 101-111 mmol/L Carbon Dioxide Level 25 21-32 mmol/L Blood Urea Nitrogen 10 7-18 mg/dL Creatinine 0.9 0.5-1.3 mg/dL Glomerular Filtration Rate Calc 96 >90 mL/min Random Glucose 105 70-105 mg/dL Total Calcium 7.6 L 8.5-10.1 mg/dL Total Bilirubin 0.5 0.2-1.0 mg/dL Aspartate Amino Transf (AST/SGOT) 311 H 10-37 U/L Alanine Aminotransferase (ALT/SGPT) 276 #H 12-78 U/L Alkaline Phosphatase 75 50-136 U/L Total Protein 5.5 L 6.0-8.3 g/dL Albumin 2.0 L 3.5-5.0 g/dL Whole Blood Glucose 117 H 70-110 MG/DL Prothrombin Time 12.0 H 9.6-11.6 SEC Prothromb Time International Ratio 1.15 0.85-1.15 Iron Level 31 L 65-175 mcg/dL Total Iron Binding Capacity 133 L 250-450 mcg/dL Percent Iron Saturation 23.3 L 30-44 % Total Creatine Kinase 145 # 21-232 U/L Cortisol AM Sample 18.6 6.2-19.4 ug/dL Test 07/04/25 05:16 Range/Units Triglycerides Level 253 H 30-200 mg/dL Cholesterol Level 69 <200 mg/dL LDL Cholesterol 30 0-99 mg/dL HDL Cholesterol < 10 L 29-71 mg/dL ASSESSMENT: Possible rickettsial infection. Thrombocytopenia. Elevated liver enzymes. Hyponatremia. Iron-deficiency anemia. Lower extremities erythematous rash. Constipation. PLAN: Continue doxycycline. Continue ceftriaxone. Give lactulose 20 g p.o. x1. Continue GI prophylaxis. Monitor and replace electrolytes. Continue pain management. Follow-up typhus IgG results This case was reviewed and discussed with my supervising physician Dr. Abebe and the above assessment and plan was formulated and agreed upon. LEOBARDO LEGER [facility] Jul 05, 2025 15:01
[2025-07-06 04:00] VITALS: BP 110/72; PULSE 75; RESP 20; TEMP 98.1
[2025-07-06 04:46] LABS: NUCLEATED RED BLOOD CELLS 0.0 % (0.0-0.19); PLATELET COUNT (AUTO) 189.0 K/uL (130-400); RED BLOOD CELL COUNT(AUTO) 4.38 MIL/uL (4.50-6.20); RED CELL DISTRIBUTION WIDTH 15.7 % (11.0-15.5); WHITE BLOOD COUNT (AUTO) 6.5 K/uL (4.8-10.8)
[2025-07-06 05:02] LABS: ASPARTATE AMINOTRANSFERASE 217.0 U/L (10-37); CREATININE 0.8 mg/dL (0.5-1.3); GLOMERULAR FILTR. RATE CALC 99.0 mL/min (>90); GLUCOSE,RANDOM 105.0 mg/dL (70-105); SODIUM SERUM 141.0 mmol/L (136-145); TOTAL PROTEIN, SERUM 5.5 g/dL (6.0-8.3); UREA NITROGEN, BLOOD 9.0 mg/dL (7-18)
[2025-07-06 07:30] VITALS: O2SAT 98
[2025-07-06 08:00] VITALS: BP 107/71; PULSE 92; RESP 18; TEMP 97.1
--- NOTE | 2025-07-06 10:15 | PN ---
INFECTIOUS DISEASE PROGRESS NOTE Date of Service: Jul 06, 2025 SUBJECTIVE: This is a 64-year-old male being seen at bedside in room 120. Continues on Rocephin and doxycycline. Remains afebrile, temperature is 97.2. Slight improvement on the Liver enzymes. From Infectious Disease standpoint patient can be discharged on doxycycline 100 mg b.i.d. for 5 days when ready to discharge. PHYSICAL EXAM EYES: Anicteric. Pupils equal and reactive. HENT: No oral thrush seen, moist Oral mucosa NECK: Supple, no JVD or thyromegaly. LUNGS: Good air entry. No rales, no rhonchi. CARDIOVASCULAR: S1, S2 regular. No murmur heard. ABDOMEN: Soft, non tender, bowel sounds present. CENTRAL NERVOUS SYSTEM: Awake, alert, oriented x 3. SKIN: No rashes, no swelling. Lower extremities erythematous rash. LYMPHATICS: No peripheral lymphadenopathy. MUSCULOSKELETAL: No joint swelling, erythema or tenderness. EXTREMITIES: No cyanosis or clubbing BACK: No deformity, no pressure ulcer. GENITOURINARY: No dysuria or hematuria Vital Sign (Last 12 Hours) 07/05/25 07/06/25 07/06/25 23:54 04:00 08:00 Temp 98.1 98.1 97.2 Pulse 78 75 92 Resp 16 20 18 B/P (MAP) 110/68 110/72 107/71 Pulse Ox 95 95 98 O2 Delivery Room Air Room Air Room Air Intake & Output (last 24hrs) 07/05/25 07/05/25 07/06/25 15:00 23:00 07:00 Intake Total 60.0 ml 350.0 ml Output Total 2200 ml 1700 ml 4500 ml Balance -2200 ml -1640.0 ml -4150.0 ml LABS: Laboratory: Test 07/06/25 04:21 07/05/25 08:28 07/04/25 11:21 Range/Units White Blood Count 6.5 4.8-10.8 K/uL Red Blood Count 4.38 L 4.50-6.20 MIL/uL Hemoglobin 11.8 L 14.0-18.0 g/dL Hematocrit 35.2 L 42-54 % Mean Corpuscular Volume 80.4 79-99 fL Mean Corpuscular Hemoglobin 26.9 L 27.0-33.0 pg Mean Corpuscular Hemoglobin Concent 33.5 32.0-36.0 g/dL Red Cell Distribution Width 15.7 H 11.0-15.5 % Platelet Count 189 # 130-400 K/uL Mean Platelet Volume 10.5 7.5-10.5 fL Nucleated Red Blood Cells 0.0 0.0-0.19 % Sodium Level 141 136-145 mmol/L Potassium Level 3.4 L 3.5-5.1 mmol/L Chloride Level 108 101-111 mmol/L Carbon Dioxide Level 24 21-32 mmol/L Blood Urea Nitrogen 9 7-18 mg/dL Creatinine 0.8 0.5-1.3 mg/dL Glomerular Filtration Rate Calc 99 >90 mL/min Random Glucose 105 70-105 mg/dL Total Calcium 7.9 L 8.5-10.1 mg/dL Total Bilirubin 0.4 0.2-1.0 mg/dL Aspartate Amino Transf (AST/SGOT) 217 H 10-37 U/L Alanine Aminotransferase (ALT/SGPT) 251 H 12-78 U/L Alkaline Phosphatase 64 50-136 U/L Total Protein 5.5 L 6.0-8.3 g/dL Albumin 2.0 L 3.5-5.0 g/dL Ammonia 17 11-32 umol/L Whole Blood Glucose 117 H 70-110 MG/DL ASSESSMENT: Possible rickettsial infection. Thrombocytopenia. Elevated liver enzymes. Hyponatremia. Iron-deficiency anemia. Lower extremities erythematous rash. PLAN: Continue doxycycline. Continue ceftriaxone. From Infectious Disease standpoint patient can be discharged on doxycycline 100 mg p.o. b.i.d. for 5 days when ready to discharge. This case was reviewed and discussed with my supervising physician Dr. Bolaños and the above assessment and plan was formulated and agreed upon. ATTESTATION BY PHYSICIAN I have seen and examined the patient. I reviewed the documentation, medical decision making, and treatment plan as noted by the mid-level provider above. I agree with the findings and plan of care. JEIMY BOLAÑOS MD, [facility] Jul 06, 2025 10:15
[2025-07-06 12:00] VITALS: BP 118/81; PULSE 73; RESP 18; TEMP 97.4
--- NOTE | 2025-07-06 14:42 | DS ---
Discharge Summary Hospital Course Summary: The patient is a 64-year-old male who presented to the ED with one week of generalized weakness and a recent onset cough. He reported poor oral intake over the past two weeks but denied fever, chills, chest pain, or shortness of breath at initial presentation. Initial workup showed hyponatremia (Na 127), mild hyperglycemia (glucose 119), elevated liver function tests (AST 155, ALT 189), elevated CK (251), and hypoalbuminemia (2.9). Influenza A/B, COVID-19, and group A strep tests were negative. He received 2 L of IV fluids and was admitted for further evaluation and management. During hospitalization, the patient continued to report generalized weakness but remained hemodynamically stable. He received IV fluids and supportive care. Labs showed mild improvement in sodium (132-134) and persistently elevated AST/ALT and triglycerides. On hospital day 2, he developed a fever of 102.9F; urine culture showed mixed kathi contamination, blood cultures showed no growth, and Legionella urine antigen was negative. Infectious Disease was consulted, and IV antibiotics (Rocephin and doxycycline) were initiated for suspected Rickettsia infection. Imaging including CT of the head, abdomen/pelvis, and lumbar spine, reports are pending, patient is advised to follow up with primary care physician for the reports. CT Abdomen is showing a suspicion of prostatomegaly, patient is advised to follow up With PCP with PSA.Physical therapy was involved, and he regained strength, able to ambulate with assistance. Laboratory trends showed improving AST/ALT. Echocardiogram revealed normal left ventricular ejection fraction (5055%). The patient is now clinically stable, alert, and oriented 3, tolerating oral intake, and able to ambulate with minimal assistance. CT scan of the head, abdomen/pelvis, and lumbar spine, reports are pending and the same will be delayed as per Radiology department . Patient has been updated about this and agrees with discharge plans . He is instructed to follow up with his PCP to obtain the pending reports . He confirms understanding . He will continue doxycycline 100 mg BID as per Infectious Disease recommendations, written script is given to the patient. Urine and blood cultures remained negative, and his condition is improving. He is being discharged with follow-up instructions and to continue monitoring for any new symptoms. [employer] Design Drafter(s): CONSULTATION REPORT Name: ANTONIO KING Acct: [id number] MR: [id number] : 1960 Admit Date: 07/01/25 JEIMY BOLAÑOS MD [place] [id number] [place] [id number] INFECTIOUS DISEASE CONSULTATION DATE OF SERVICE: 07/03/2025 REQUESTING PHYSICIAN: Dr. Rascon. REASON FOR CONSULTATION: Persistent fever and antibiotic management. HISTORY OF PRESENT ILLNESS: A 64-year-old male with a history of obesity who presents to hospital with fever, chills and a cough. The patient claims symptoms have been going on for about a week. Influenza antigen was negative. The patient started on Zosyn for continuing persistent fever. T-max overnight was 103. The patient found with elevated liver enzymes. Procalcitonin is positive at 3.34. Sodium is low. No dysuria, no frequency. Denies sick contact. Denies . PAST MEDICAL HISTORY: None. SURGICAL HISTORY: Left retinal surgical detachment. ALLERGIES: No known drug allergies. CURRENT MEDICATIONS: Include: 1. Tylenol. 2. Zosyn. 3. Zofran. SOCIAL HISTORY: No alcohol, tobacco, or illicit drug use. FAMILY HISTORY: Noncontributory. REVIEW OF SYSTEMS: Greater than 10 systems were reviewed. Negative except documented above. PHYSICAL EXAMINATION: GENERAL: Elderly male, awake, ill looking. VITAL SIGNS: Temperature 102.9, pulse 99, respiratory rate 18, blood pressure 105/60. EYES: No icterus. Pupils equal and reactive. HENT: No oral thrush seen. Moist oral mucosa. NECK: Supple. No JVD or thyromegaly. LUNGS: Good air entry. No rales, no rhonchi. CARDIOVASCULAR: S1, S2. Regular. No murmur heard. ABDOMEN: Soft, nontender. Bowel sound is present. CENTRAL NERVOUS SYSTEM: Awake, alert, oriented x 3. No focal deficits. SKIN: The patient has erythematous rashes on the lower extremities. LYMPHATIC: No peripheral lymphadenopathy. BACK: No deformity, no pressure ulcer. HEMATOLOGIC: No bleeding or petechial lesions seen. MUSCULOSKELETAL: No joint swelling, erythema, or tenderness. LABORATORY DATA: Procalcitonin 3.34, AST 135, ALT 137, sodium 129, potassium 3.3, BUN 10, creatinine 0.8. WBC 5.5, hemoglobin 12.9, platelets 112. Influenza antigen negative. Blood culture, no growth for today. Urine culture showed mixed kathi. RADIOLOGY: Abdominal ultrasound revealed hepatic steatosis. Chest x-ray unremarkable. ASSESSMENT: A 64-year-old male presenting with fever. Current problems include; 1. Possible recurrence of infection. 2. Elevated liver enzymes. 3. Hypokalemia. 4. Hyponatremia. 5. Elevated liver enzymes. PLAN: 1. Discontinue Zosyn. 2. Start the patient on ceftriaxone. 3. Start the patient on doxycycline. 4. Obtain serology. 5. Continue Tylenol. 6. Follow up culture. 7. Continue DVT prophylaxis. 8. The patient will be followed closely. Thank you for allowing me to participate in the care of this patient. TID: [id number] RECEIPT: [id number] Electronically Signed by: Electronically Co-Signed by: Procedure(s): [place] [address] [address] IMAGING REPORT Signed PATIENT: ANTONIO KING MR#: [id number] : 1960 SEX: M AGE: 64 LOCATION: [facility] ORDER 1203 STATUS: [facility] REPORT#: [id number] SERVICE 1201 REASON: cough ORDERING PHYSICIAN: SHERICE EVANS CNP PROCEDURE: CXR1VW - CHEST 1VW EXAM: CR Chest, 1 View. CLINICAL HISTORY: cough COMPARISON: None provided. FINDINGS: LUNGS: There is no mass, infiltrate, or acute pulmonary abnormality. PLEURAL SPACES: No pleural effusion or pneumothorax. MEDIASTINUM: The cardiomediastinal silhouette is within normal limits. BONES: No aggressive appearing osseous lesion seen. IMPRESSION: No acute cardiopulmonary pathology is evident. /[place] DICTATED BY: JOSE NARAYANAN Jr., MD DATE: 07/01/25 1431 ELECTRONICALLY SIGNED BY: JOSE NARAYANAN Jr., MD DATE: 07/01/25 143 [facility] [address] [place] [address] IMAGING REPORT Signed PATIENT: ANTONIO KING MR#: [id number] : 1960 SEX: M AGE: 64 LOCATION: [facility] ORDER 152 STATUS: REG ER REPORT#: [id number] SERVICE 152 REASON: abnormal liver enzymes ORDERING PHYSICIAN: SHERICE EVANS CNP PROCEDURE: ABDRUKAMLAD - US ABDOMINAL RUQ\LTD EXAM: US Abdomen, Right Upper Quadrant. CLINICAL HISTORY: Abnormal liver enzymes. TECHNIQUE: Right upper quadrant sonography performed with image documentation. COMPARISON: None provided. FINDINGS: LIVER: Echogenic liver measuring 15 cm. Limited evaluation of the left lobe due to bowel gas. No focal mass. GALLBLADDER: Gallbladder contracted. Gallbladder wall measures 4 mm. No gallstones. COMMON BILE DUCT: CBD measures 5 mm. PANCREAS: Visualized portion within normal limits. Pancreatic tail obscured by bowel gas. RIGHT KIDNEY: Right kidney measures 10.8 ??? 5.7 ??? 4.4 cm. Normal renal contours. No renal mass, calculus, or hydronephrosis. IMPRESSION: 1. Hepatic steatosis. /[place] DICTATED BY: JOSE NARAYANAN Jr., MD DATE: 07/01/251715 ELECTRONICALLY SIGNED BY: JOSE NARAYANAN Jr., MD DATE: 07/01/251715 [facility] [address] [place] [address] IMAGING REPORT Signed PATIENT: ANTONIO KING MR#: [id number] : 1960 SEX: M AGE: 64 LOCATION: 1MS ORDER 1814 STATUS: ADM IN REPORT#: [id number] SERVICE 0000 REASON: rule out edocarditis ORDERING PHYSICIAN: JESSICA HOLT MD PROCEDURE: ECHO CMP - ECHO 2-D COMPLETE APPROVED REPORT EXAM: 3D/Two-dimensional and M-mode echocardiogram with Doppler and color Doppler. INDICATION ICD: Rule out endocarditis 2D Dimensions RVDd 3.9 cm LVEF(%) 66.2 (>50%) LVED Vol(simp.) 77.0 mL IVSd 1.0 (0.7-1.1cm) FS(%) 37 % LVES Vol(simp.) 37.0 mL LVDd 5.1 (3.8-5.6cm) LA (2D) 3.5 (1.6-4.0cm) LVEF(%, simp.) 52 % PWd 1.3 (0.7-1.1cm) Ao Root(2D) 3.7 (2.0-3.7cm) LA ESV INDEX (BP) 28.94 mL/m2 IVSs 1.4 cm LVOT diam 2.2 (1.8-2.4cm) LVDs 3.2 (2.5-4.0cm) IVC diam 1.5 cm PWs 1.4 cm Deformation Strain Apical 4 -15.3 % Apical 2 -14.1 % Apical 3 -15.2 % Global Strain -14.8 % M-Mode Dimensions EPSS 0.5 cm LA (MM) 4.2 (1.6-4.0cm) Ao Root(MM) 3.8 (2.0-3.7cm) Aortic Valve AoV Vmax 1.3 m/s Ao Peak GR 6.8 mmHg LVOT Vmax 1.2 m/s AoV VTI 0.2 m Ao Mean GR 4.3 mmHg LVOT VTI 0.19 m KIA (VMAX) 3.59 cm2 KIA (VTI) 3.5 cm2 Mitral Valve MV E Vmax 51.6 cm/s DECEL Time 116 ms MV A Vmax 49.2 cm/s P 1/2 T 41 ms E/A ratio 1.0 MVA (PHT) 5.3 cm2 TDI E/E' Medial 5.1 E/E' Lateral 4.9 Medial E' Peak V 10.20 cm/s Lateral E' Peak V 10.47 cm/s Pulmonary Valve PV Vmax 1.0 m/s PI End [place]. Teodoro 104.6 cm/s PV Mean GR 2.5 mmHg PV Peak GR 4.0 mmHg Tricuspid Valve TR Vmax 1.6 m/s RAP (EST) 3 mmHg RVSP 13.8 mmHg TR Peak GR 10.8 mmHg Left Ventricle The left ventricle is normal size. There is normal LV segmental wall motion. Global strain of -15%. There is normal left ventricular wall thickness. LVEF is 50-55%. 3D volume EF 52% Indeterminate diastolic dysfunction. Right Ventricle The right ventricle is normal size. The right ventricular systolic function is normal. Atria The left atrium size is normal. The right atrium size is normal. Aortic Valve Aortic valve is trileaflet and opens well. No aortic regurgitation is present. No aortic valvular vegetation noted. There is no aortic valvular stenosis. Mitral Valve The mitral valve is normal in structure. There is mild mitral valve regurgitation noted. There are no mitral valve vegetation noted. There is no mitral valve stenosis. Tricuspid Valve The tricuspid valve is normal in structure. There is trace of tricuspid valve regurgitation noted. There is no tricuspid valve vegetation. Pulmonic Valve The pulmonary valve is normal in structure. There is trace of pulmonic valvular regurgitation. Great Vessels The aortic root is normal in size. The IVC is normal in size and collapses >50% with inspiration. Pericardium There is no pericardial effusion. Other Information Quality : Adequate Conclusion LVEF is 50-55%. 3D volume EF 52% There is normal LV segmental wall motion. Global strain of -15%. DICTATED BY: KIM CANTRELL MD DATE: 07/03/25 0815 ELECTRONICALLY SIGNED BY: KIM CANTRELL MD DATE: 07/03/25 1245 RUN DATE: 07/03/25 [facility] PAGE 1 RUN TIME: [address] [place] [address], [place] [address] Department of [employer] [facility] # [id number] Hotel Engineer: Agnieszka Baldwin DO Specimen Report PATIENT: ANTONIO KING ACCT: [id number] LOC: 1MS U: [id number] AGE/SX: 64/M ROOM: 120 RE07/01/[address]: ALEXSANDRA MARRERO MD : 1960 BED: 1 DIS: STATUS: ADM IN TLOC: SPEC: [id number] ROGER: 07/02/25 STATUS: COMP REQ: [id number] RECD: 07/02/[address]: SHARDA FOSTER MD SOURCE: URINE ENTR: 07/02/[address]: ALEXSANDRA MARRERO MD SPDESC: CLEAN CAT [place] MD ORDERED: SHAWNA BARNES Procedure Result Brooke Date-Time LEGIONELLA PNEUMO AG URINE Final 07/03/25-1110 [facility] RESULT: NEGATIVE REFERENCE RANGE = NEGATIVE RESULT: L. PNEUMOPHILIA SEROGROUP 1 ANTIGEN NOT DETECTED. Test(s) performed by: [facility] [address] [place] [address] @ [facility] Test Performed at: [facility] [address], [place], [place] [employer] Educator: Garett Aaron D.O. END OF REPORT RUN DATE: 07/06/25 [facility] PAGE 1 RUN TIME: [address] [address], [place] [address] Department of Laboratories [place] # [id number] Hotel Engineer: Agnieszka Baldwin DO Specimen Report PATIENT: ANTONIO KING ACCT: [id number] LOC: [facility] U: [id number] AGE/SX: 64/M ROOM: 120 RE07/01/[address]: ALEXSANDRA MARRERO MD : 1960 BED: 1 DIS: STATUS: ADM IN TLOC: SPEC: [id number] ROGER: 07/01/25 STATUS: DAMION REQ: [id number] RECD: 07/01/[address]: SHERICE EVANS CNP SOURCE: BLOOD ENTR: 07/01/25-[address]: DONAL [facility]: [place] MD ORDERED: BLOOD CULTURE COMMENTS: What is the Source? BLOOD Procedure Result Brooke Date-Time BLOOD CULT Final 07/06/25 NO GROWTH AFTER 5 DAYS END OF REPORT RUN DATE: 07/02/25 [facility] PAGE 1 RUN TIME: [address]61 [address] [address], [place] [address] Department of Laboratories [place] # [id number] Hotel Engineer: Agnieszka Baldwin DO Specimen Report PATIENT: ANTONIO KING ACCT: [id number] LOC: S U: [id number] AGE/SX: 64/M ROOM: 120 RE07/01/[address]: ALEXSANDRA MARRERO MD : 1960 BED: 1 DIS: STATUS: ADM IN TLOC: SPEC: [id number] ROGER: 07/01/25-1255 STATUS: COMP REQ: [id number] RECD: 07/01/25-[address]: SHERICE EVANS CNP SOURCE: URINE CC ENTR: 07/01/25-[address]: DONAL SPDESC: [place] MD ORDERED: URINE CULTURE Procedure Result Brooke Date-Time URINE CULTURE Final 07/02/25-1908 REPORT URINE 50,000 TO 100,000 CFU >3 COLONY TYPES PRESENT MIXED SKIN KATHI CONTAMINATION NO FURTHER STUDIES PENDING END OF REPORT Assessment/Plan: Discharge Diagnosis: Sepsis of unknown source POA Possible rickettsial infection, POA Hyponatremia POA Elevated LFTs POA Hepatic steatosis. Evidence by ultrasound Discharge Instructions: DATE OF ADMISSION: 07.01.2025 DATE OF DISCHARGE: 07.06.2025 DISPOSITION: home CONDITION: Medically stable CONSULTANTS: Dr. Bolaños - infectious disease specialist FOLLOW UP APPOINTMENTS: Follow up with your primary care doctor in [address] of the head, abdomen/pelvis, and lumbar spine, reports are pending, patient is advised to follow up with primary care physician for the reports. Follow up with infectious disease specialist in a week for the typhus IgG results and assessment. SPECIFIC INSTRUCTIONS: continue taking doxycycline 100 mg orally twice daily until the full course is completed Ambulate as tolerated; continue light physical activity at home. Maintain adequate hydration Eat a balanced diet with adequate protein and calories Monitor for fever, chills, worsening weakness, shortness of breath, chest pain, or any new symptoms. Go to the ED immediately if you experience high fever (>103F), severe weakness, confusion, chest pain, difficulty breathing, or fainting. PROCEDURES: none IMAGING: report attached to summary MICROBIOLOGY: report attached to summary HOME MEDICATIONS: see med rec NEW MEDICATIONS: See medication reconciliation EMERGENCY INSTRUCTIONS: The patient was instructed to present to the nearest Emergency department or call 911 once their symptoms will return or worsen. Home Medications: Reported Medications Aspirin/Acetaminophen/Caffeine (Excedrin Extra Strength Caplet) 250 Mg-250 Mg-65 Mg Tablet, 1 EACH PO TIDP PRN for HEADACHE, TAB 07/02/25 Time spent arranging discharge: 1-30 minutes ATTESTATION BY PHYSICIAN I have seen and examined the patient. I reviewed the documentation, medical decision making, and treatment plan as noted by the resident provider above. I agree with the findings and plan of care. Julian Marrero MD, LAKSHMI MD Jul 06, 2025 14:41 KENZIE JUAREZ MD Jul 06, 2025 15:05
--- NOTE | 2025-07-06 17:21 | NUR ---
DISCHARGE PIV DC'D PATIENT GIVEN PRESCRIPTION FOR DOXYCYCLINE 100 MG PO BID X [address] BOLAÑOS PATIENT INFORMED TO FOLLOW UP WITH PCP ALL QUESTIONS ANSWERED PRIOR TO DISCHARGE PATIENT ASSISTED WITH WHEELCHAIR BY LETY HOFF
--- NOTE | 2025-07-08 02:52 | HMCIMG ---
EXAM: CT Abdomen and Pelvis Without IV contrast CLINICAL HISTORY: rule out renal calculi TECHNIQUE: Axial computed tomography images of the abdomen and pelvis without intravenous contrast. CONTRAST: No IV contrast. COMPARISON: None provided. FINDINGS: LUNG BASES: The lung bases appear clear. No pleural effusions are seen. LIVER: Unremarkable. GALLBLADDER AND BILE DUCTS: The gallbladder appears within normal limits. No radioopaque gallstones are seen. No biliary ductal dilatation is evident. PANCREAS: Unremarkable. SPLEEN: Unremarkable. ADRENAL GLANDS: Unremarkable. KIDNEYS, URETERS, AND BLADDER: The kidneys appear within normal limits. There is no hydronephrosis or hydroureter. No urinary calculi are seen. STOMACH AND BOWEL: Unremarkable appearance of the stomach and bowel. No evidence of bowel obstruction. No evidence suggesting enteritis or colitis. APPENDIX: No evidence of acute appendicitis on CT examination. PERITONEUM: No free fluid. No free air. LYMPH NODES: No lymphadenopathy is evident. REPRODUCTIVE: Unremarkable as visualized. VASCULATURE: No evidence of abdominal aortic aneurysm. BONES: No aggressive appearing osseous lesion. No acute osseous pathology evident. IMPRESSION: No acute intra-abdominal or pelvic abnormality. No CT evidence of urolithiasis. /[place]
--- NOTE | 2025-07-08 02:53 | HMCIMG ---
EXAM: CT Lumbar Spine Without IV contrast. CLINICAL HISTORY: rule out lumbar spine compression or structural cause of leg weakness TECHNIQUE: Axial computed tomography images of the lumbar spine without intravenous contrast. Sagittal and coronal reformatted images were generated. COMPARISON: None provided. FINDINGS: ALIGNMENT: Bony alignment is anatomic. DISCS/DEGENERATIVE CHANGES: No significant degenerative disease. BONES: No acute fracture or aggressive appearing osseous lesion. SOFT TISSUES: The soft tissues are unremarkable. IMPRESSION: No acute lumbar spine abnormality. If there is clinical concern for nerve root compression, MRI is suggested. /[place]
--- NOTE | 2025-07-08 11:38 | HMCIMG ---
EXAM: CT Head Without IV contrast. CLINICAL HISTORY: rule out stroke or structural brain pathology TECHNIQUE: Axial computed tomography images of the head/brain without intravenous contrast. COMPARISON: None provided. FINDINGS: BRAIN: No evidence of acute hemorrhage. No mass lesion. No CT evidence for acute territorial infarct. No midline shift or extra-axial collections. Periventricular hypodensities are consistent with chronic small vessel ischemic disease. Mild global cortical atrophy with ex vacuo dilatation of the CSF spaces. VENTRICLES: No hydrocephalus. ORBITS: The orbits are unremarkable. SINUSES AND MASTOIDS: The paranasal sinuses and mastoid air cells are clear. BONES: No fracture. SOFT TISSUES: Unremarkable. MISCELLANEOUS: Suspected Postsurgical changes in the right orbit IMPRESSION: No evidence of acute ischemia. If there is clinical concern, MRI can be considered. Suspected Postsurgical changes in the right orbit Chronic degenerative changes are described above. /[place]
== END 2025-07-06 17:20 | disposition home or self-care (01) | DRG 872 ==
LOC: EDH 11:49 → EDHIP 17:06 → 1MS 07-02 00:10
PROVIDERS: ADMIT Hospitalist; ATTEND Hospitalist
DX: A41.9 Sepsis, unspecified organism (principal); E88.09 Other disorders of plasma-protein metabolism, not elsewhere classified; R62.7 Adult failure to thrive; D69.6 Thrombocytopenia, unspecified; K76.0 Fatty (change of) liver, not elsewhere classified; E66.9 Obesity, unspecified; D50.9 Iron deficiency anemia, unspecified; E87.1 Hypo-osmolality and hyponatremia; A79.9 Rickettsiosis, unspecified; E86.0 Dehydration; H54.62 Unqualified visual loss, left eye, normal vision right eye; E87.6 Hypokalemia; K59.00 Constipation, unspecified; Z68.27 Body mass index [BMI] 27.0-27.9, adult
CPT/HCPCS: 36415; 70450; 71045; 72131; 74176; 76376; 76705; 80048; 80053; 80061; 80074; 80076; 80305; 81001; 82140; 82533; 82550; 82948; 83540; 83550; 83605; 83690; 83735; 83930; 83935; 84145; 84300; 84443; 84484; 85025; 85027; 85610; 86757; 87040; 87086; 87449; 87635; 87804; 87880; 93005; 93306; 93356; 96360; 99285; G0378; J0696; J2543; J3480; J3490; J7030

== ENCOUNTER → 2025-07-18 | Outpatient (CLI) | payer OTHER ==
--- NOTE | 2025-07-19 10:40 | HMCIMG ---
EXAM: CT Head Without Intravenous Contrast. CLINICAL HISTORY: Disorientation, unspecified. TECHNIQUE: Axial computed tomography images of the head/brain without intravenous contrast. Dose reduction technique was used including one or more of the following: automated exposure control, adjustment of mA and kV according to patient size, and/or iterative reconstruction. Total exam DLP is 960.4. Total CTDI volume 49.3. CONTRAST: Without. COMPARISON: CT Head dated July 02, 2025. FINDINGS: BRAIN: No acute intraparenchymal hemorrhage. No mass lesion. No CT evidence for acute territorial infarct. No midline shift or extra-axial collection. There is prominence of the sulcal spaces and basal cisterns, consistent with age related atrophy. There is mild periventricular hypodensity, suggestive of small vessel ischemic changes, stable since the prior examination. VENTRICLES: Slight ex vacuo prominence of the ventricular system, consistent with age related atrophy. ORBITS: Postsurgical changes are present in the left eye globe, stable since the prior examination. SINUSES AND MASTOIDS: The paranasal sinuses and mastoid air cells are clear. SOFT TISSUES: No significant facial or scalp soft tissue swelling evident. No radiopaque foreign body is seen. BONES: No acute skull fracture. IMPRESSION: 1. No acute intracranial abnormality. 2. Age-related atrophy and mild chronic small vessel ischemic changes, stable since the prior CT scan of the head dated July 02, 2025 . /[place]
== END | disposition home or self-care (01) ==
LOC: RAH 12:29
PROVIDERS: ATTEND Physician Assistant Medical
DX: I67.82 Cerebral ischemia (principal); R41.0 Disorientation, unspecified; R55 Syncope and collapse; Z98.890 Other specified postprocedural states
CPT/HCPCS: 70450